=== PATIENT | female | born 1985 ===

== ENCOUNTER → 2020-02-22 13:19 | Outpatient (BNVA) | payer MEDICAID, SELFPAY | PROVIDERS: PCP Internal Medicine; Referring Provider Internal Medicine; Visit Provider Advanced Practice Midwife | DX: N92.1 Excessive and frequent menstruation with irregular cycle (principal) | CPT/HCPCS: 99204 ==

== ENCOUNTER 2020-02-27 14:29 | Outpatient (REF) | payer MEDICAID, SELFPAY ==
--- NOTE | 2020-02-27 14:55 | US_ITS ---
EXAMINATION: US PELVIS, COMPLETE CLINICAL INFORMATION: Excessive and frequent menses; the last menstrual period is not specified. COMPARISON: Pelvic ultrasound dated 09/05/2018. TECHNIQUE: Transabdominal and transvaginal imaging was performed. FINDINGS: The uterus is of normal size and echogenicity measuring 9.3 x 4.5 x 5.0 cm. The uterus is anteverted and anteflexed. A regular homogeneous endometrium is identified measuring 1.2 cm. Nabothian cysts are seen within the cervix. Both ovaries are of normal size and echogenicity. The right ovary measures 2.8 x 2.1 x 1.9 cm for a volume of 5.9 mL. The left ovary measures 4.0 x 3.7 x 2.3 cm for a volume of 17.8 mL. Multiple left ovarian cysts are seen, including a 2.0 x 1.4 x 2.0 cm mildly complex cyst with fine septation. This shows no mural nodularity associated color Doppler flow. There is a small amount of pelvic free fluid. No adnexal mass is seen. US/US pelvic complete IMPRESSION: 1. Multiple left ovarian cysts are seen, including a mildly complex 2.0 cm in maximal diameter anechoic cyst with fine septation. As a precaution, a repeat pelvic ultrasound examination is recommended in 6 weeks to ensure stability. 2. A small amount of nonspecific free fluid is seen within the cul-de-sac.
--- NOTE | 2020-02-27 14:55 | US_ITS ---
EXAMINATION: US PELVIS, COMPLETE CLINICAL INFORMATION: Excessive and frequent menses; the last menstrual period is not specified. COMPARISON: Pelvic ultrasound dated 09/05/2018. TECHNIQUE: Transabdominal and transvaginal imaging was performed. FINDINGS: The uterus is of normal size and echogenicity measuring 9.3 x 4.5 x 5.0 cm. The uterus is anteverted and anteflexed. A regular homogeneous endometrium is identified measuring 1.2 cm. Nabothian cysts are seen within the cervix. Both ovaries are of normal size and echogenicity. The right ovary measures 2.8 x 2.1 x 1.9 cm for a volume of 5.9 mL. The left ovary measures 4.0 x 3.7 x 2.3 cm for a volume of 17.8 mL. Multiple left ovarian cysts are seen, including a 2.0 x 1.4 x 2.0 cm mildly complex cyst with fine septation. This shows no mural nodularity associated color Doppler flow. There is a small amount of pelvic free fluid. No adnexal mass is seen. US/US transvaginal IMPRESSION: 1. Multiple left ovarian cysts are seen, including a mildly complex 2.0 cm in maximal diameter anechoic cyst with fine septation. As a precaution, a repeat pelvic ultrasound examination is recommended in 6 weeks to ensure stability. 2. A small amount of nonspecific free fluid is seen within the cul-de-sac.
[2020-02-27 15:03] LABS: Hematocrit 30.6 % (37-47); Mean Corpuscular HGB Conc 29.4 g/dl (31.0-35.0); Mean Corpuscular Hemoglobin 20.5 pg (27.0-33.0); Mean Corpuscular Volume 69.7 fL (80-98); Red Blood Count 4.39 X10*6/uL (4.20-5.50); Red Cell Distribution Width 17.7 % (11.0-16.0); White Blood Count 7.1 X10*3/uL (4.8-10.8)
[2020-02-27 15:09] LABS: PLT ABN DIST 1
[2020-02-27 15:27] LABS: Platelet Count 226 X10*3/uL (160-400)
== END 2020-02-27 14:30 | disposition home or self-care (01) ==
LOC: HO.US 14:29
PROVIDERS: Visit Provider Advanced Practice Midwife
DX: N92.1 Excessive and frequent menstruation with irregular cycle (principal)
CPT/HCPCS: 36415; 76830; 76856; 84443; 85027

== ENCOUNTER 2020-05-01 09:49 | Outpatient (REF) | payer MEDICAID, SELFPAY | END 2020-05-01 09:50 | disposition home or self-care (01) | LOC: HO.LAB 09:49 | PROVIDERS: Visit Provider Internal Medicine | DX: Z20.828 Contact with and (suspected) exposure to other viral communicable diseases (principal) | CPT/HCPCS: C9803; U0003 ==

== ENCOUNTER 2020-05-15 10:36 | Outpatient (REF) | payer MEDICAID, SELFPAY ==
--- NOTE | 2020-05-15 10:40 | US_ITS ---
EXAMINATION: ULTRASOUND PELVIS COMPLETE. CLINICAL INFORMATION: Unspecified ovarian cyst. COMPARISON: None TECHNIQUE: Transabdominal and transvaginal ultrasound of the pelvis is performed. FINDINGS: The uterus is anteverted and anteflexed measuring 8.4 cm in length, 4.4 cm in AP and 5.9 cm in transverse dimension. No focal lesion is seen. The endometrial thickness is 1.2 cm with 2 small echogenic foci. There are multiple nabothian cysts seen in the cervix. The right ovary measures 4.0 x 2.3 x 2.1 cm and volume 9.9 mL. There is a corpus luteal cyst measuring 1.6 x 1.5 x 1.7 cm. Previously right ovary measured 2.8 x 2.1 x 1.9 cm. The left ovary measures 2.8 x 2.3 x 2.2 cm and volume 7.4 mL. Previously left ovary measured 2.8 x 2.1 x 1.9 cm. Free fluid in the cul-de-sac. US/US transvaginal IMPRESSION: Unremarkable uterus. Small nabothian cysts seen in the cervix. 2 echogenic foci are seen in the endometrial cavity.
--- NOTE | 2020-05-15 10:40 | US_ITS ---
EXAMINATION: ULTRASOUND PELVIS COMPLETE. CLINICAL INFORMATION: Unspecified ovarian cyst. COMPARISON: None TECHNIQUE: Transabdominal and transvaginal ultrasound of the pelvis is performed. FINDINGS: The uterus is anteverted and anteflexed measuring 8.4 cm in length, 4.4 cm in AP and 5.9 cm in transverse dimension. No focal lesion is seen. The endometrial thickness is 1.2 cm with 2 small echogenic foci. There are multiple nabothian cysts seen in the cervix. The right ovary measures 4.0 x 2.3 x 2.1 cm and volume 9.9 mL. There is a corpus luteal cyst measuring 1.6 x 1.5 x 1.7 cm. Previously right ovary measured 2.8 x 2.1 x 1.9 cm. The left ovary measures 2.8 x 2.3 x 2.2 cm and volume 7.4 mL. Previously left ovary measured 2.8 x 2.1 x 1.9 cm. Free fluid in the cul-de-sac. US/US pelvic complete IMPRESSION: Unremarkable uterus. Small nabothian cysts seen in the cervix. 2 echogenic foci are seen in the endometrial cavity.
== END 2020-05-15 10:37 | disposition home or self-care (01) ==
LOC: HO.US 10:36
PROVIDERS: Visit Provider Advanced Practice Midwife
DX: N83.209 Unspecified ovarian cyst, unspecified side (principal); N92.1 Excessive and frequent menstruation with irregular cycle
CPT/HCPCS: 76830; 76856

== ENCOUNTER 2020-05-23 13:08 | Outpatient (REF) | payer MEDICAID, SELFPAY ==
[2020-05-24 18:13] LABS: C. trachomatis RNA TMA NOT DETECTED (NOT DETECTED); N. gonorrhoeae RNA TMA NOT DETECTED (NOT DETECTED)
== END 2020-05-23 13:09 | disposition home or self-care (01) ==
LOC: HO.LAB 13:08
PROVIDERS: PCP Internal Medicine; Visit Provider Advanced Practice Midwife
DX: Z30.430 Encounter for insertion of intrauterine contraceptive device (principal); Z32.02 Encounter for pregnancy test, result negative; Z79.899 Other long term (current) drug therapy
CPT/HCPCS: 36415; 58300; 81025; 87491; 87591

== ENCOUNTER → 2020-05-29 14:40 | Outpatient (BNVA) | payer MEDICAID, SELFPAY | PROVIDERS: PCP Internal Medicine; Visit Provider Advanced Practice Midwife | DX: Z76.89 Persons encountering health services in other specified circumstances (principal) ==

== ENCOUNTER → 2020-06-27 13:40 | Outpatient (BNVA) | payer MEDICAID, SELFPAY | PROVIDERS: PCP Internal Medicine; Visit Provider Advanced Practice Midwife | DX: Z30.431 Encounter for routine checking of intrauterine contraceptive device (principal) | CPT/HCPCS: 99212 ==

== ENCOUNTER 2020-11-11 11:30 | Outpatient (REF) | payer MEDICAID, SELFPAY ==
[2020-11-12 06:07] LABS: CT PCR NOT DETECTED (Not Detect.); NG PCR NOT DETECTED (Not Detect.)
[2020-11-12 08:38] LABS: BV Int Neg Control Negative (Negative); BV Int Pos Control Positive (Positive)
== END 2020-11-11 11:31 | disposition home or self-care (01) ==
LOC: HO.LAB 11:30
PROVIDERS: PCP Internal Medicine; Visit Provider Advanced Practice Midwife
DX: R10.2 Pelvic and perineal pain (principal); N93.9 Abnormal uterine and vaginal bleeding, unspecified; N89.8 Other specified noninflammatory disorders of vagina; N39.0 Urinary tract infection, site not specified; I10 Essential (primary) hypertension; Z30.431 Encounter for routine checking of intrauterine contraceptive device
CPT/HCPCS: 81003; 81025; 87086; 87480; 87491; 87510; 87591; 87660; 99212

== ENCOUNTER 2021-01-22 14:27 | Outpatient (REF) | payer MEDICAID, SELFPAY ==
--- NOTE | ~2021-01-22 | US_ITS ---
EXAMINATION:US pelvic and transvaginal CLINICAL INFORMATION: Reason for Exam N93.9 - Abnormal uterine and vaginal bleeding, unspecified COMPARISON: Prior ultrasound May 15, 2020 LMP: Unknown FINDINGS: UTERUS: The uterus is anteverted. Size: 9.1 x 3.9 x 5.4 cm. Uterine mass: There is no uterine mass. Echogenic foci probably calcifications at the fundus, this is probably of no clinical significance. Subendometrial echogenic structure probably a small fibroid 1.1 x 1 x 0.8 cm. Cervix: Grossly unremarkable. Endometrium: No ultrasound evidence of endometrial lesion. endometrial thickness measures 0.7 cm ADNEXA: Normal Right ovary: Normal in size. Left ovary: Normal in size. Cystic structure probably a dominant follicle left ovary 2.2 cm. Doppler exam: Normal Doppler flow identified in both ovaries. FREE FLUID: Trace amount of free fluid. OTHER FINDINGS: None US/US pelvic and transvaginal IMPRESSION: There is probably small subserosal fibroid 1.1 cm. There is a simple 2.2 cm cyst in the left ovary this is likely physiologic dominant follicle. No follow-up required.
== END 2021-01-22 14:28 | disposition home or self-care (01) ==
LOC: HO.US 14:27
PROVIDERS: PCP Internal Medicine; Visit Provider Advanced Practice Midwife
DX: N93.9 Abnormal uterine and vaginal bleeding, unspecified (principal)
CPT/HCPCS: 76830; 76856

== ENCOUNTER → 2021-02-05 11:10 | Outpatient (BNVA) | payer MEDICAID, SELFPAY | PROVIDERS: Visit Provider Advanced Practice Midwife ==

== ENCOUNTER 2021-02-06 21:50 | Emergency (ER) | payer MEDICAID, SELFPAY ==
[2021-02-06 22:35] VITALS: BP 206/100; PULSE 84; RESP 16; TEMP 37.2; O2SAT 96; BMI 25.0
--- NOTE | 2021-02-06 23:35 | ED_ITS ---
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 States that she has muscle spasms in the pain radiates down her leg. She does not describe any other symptoms. MD elicited complaint: back pain Onset (ago): day(s) (2) Timing: constant Severity: moderate Similar Symptoms Previously: No Quality: spasming and throbbing Location: left lower back Radiation: left upper leg Exacerbating factors: movement, walking, coughing/sneezing and lifting Relieving factors: immobilization Context: while lifting, turning/twisting and bending Associated symptoms: denies other symptoms Treatments prior to arrival: cold therapy, NSAIDS and acetaminophen Work related injury: Yes Related Data Home Medications Medication Instructions Recorded Confirmed amlodipine 5 mg tablet 5 mg PO DAILY 02/22/20 artifi.tears(hypromellose)(PF) 0.3 1 drp OPHTHALMIC (EYE) Q4-6H PRN 02/22/20 % eye drops ascorbate calcium (vitamin C) 500 500 mg PO DAILY 02/22/20 mg tablet docusate sodium 100 mg capsule 100 mg PO DAILY 02/22/20 (Colace) ferrous sulfate 325 mg (65 mg 325 mg PO DAILY 02/22/20 iron) tablet losartan 100 1 tab PO DAILY 02/22/20 mg-hydrochlorothiazide 25 mg tablet (Hyzaar) Previous Rx's Medication Instructions Recorded ibuprofen 600 mg tablet 600 mg PO TID #30 tab 05/23/20 nitrofurantoin 100 mg PO BID 3 Days #6 cap 11/11/20 monohydrate/macrocrystals 100 mg capsule (Macrobid) metronidazole 500 mg tablet 500 mg PO BID 7 Days #14 tab 11/12/20 (Flagyl) cyclobenzaprine 10 mg tablet 10 mg PO TID PRN #14 tab 02/06/21 Allergies Allergy/AdvReac Type Severity Reaction Status Date / Time No Known Allergies Allergy Verified 02/06/21 22:35 Review of Systems Review of Systems: Constitutional: No Fever, No Chills ENT/Mouth: No Ear Pain, No Hoarseness, No sore throat Eyes: No Eye Pain, No Swelling, No Redness, No Foreign Body Cardiovascular: No Chest Pain, No SOB Respiratory: No Cough, No Dyspnea Gastrointestinal: No Nausea, No Vomiting, No Diarrhea, No abdominal Pain Genitourinary: No Dysuria, No Hematuria Musculoskeletal: positive lumbar back pain, No Myalgias, No Joint Swelling Skin: No Skin lacerations, No rash Neuro: No Weakness, No Numbness, No Paresthesias, No Loss of Consciousness, No Dizziness, No Headache Psych: No Anxiety/Panic, No Depression Heme/Lymph: no easy bruising, no Lymphadenopathy Endocrine: No Polyuria, No Polydipsia Yes all other systems are reviewed and are negative [facility] Past Medical History Attestation statement: The following information was validated with the patient. Source: old records reviewed Medical History Anemia Hypertension Obesity (BMI 30.0-34.9) Surgical History Hx of section Hx of tubal ligation Family History Family History Mother History of breast cancer Hypertension Diabetes mellitus Social History Social History Alcohol intake: never Advance Directives: No Advance Directives Information Provided: No Physical Exam Vital Signs: Vital Signs: Last Vital Signs Temp 98.9 F 02/06/21 22:35 Pulse 84 02/06/21 22:35 Resp 16 02/06/21 22:35 BP 206/100 H 02/06/21 22:35 Pulse Ox 96 02/06/21 22:35 Body Mass Index 25.0 Appearance: Alert. Oriented X3. No acute distress. Eyes: Pupils equal, round and reactive to light. ENT: Pharynx normal. Neck: Normal inspection. Neck supple. Vertebral spine nontender no palpable step-offs. CVS: Normal heart rate and rhythm. Pulses normal. Respiratory: No respiratory distress. Breath sounds normal. Abdomen: Soft and nontender. Skin: Skin warm and dry. Normal skin color. Normal skin turgor. Extremities: No lower extremity edema. Moves all extremities against resistance. Neuro: No motor deficit. No sensory deficit. Cranial nerves 2-12 intact. Course Course Course Narrative: 35-year-old female presents with left lower back pain and spasms. 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 She does have some sciatica going down the left upper leg. Palpable spasms to the back noted. No indication of cauda equina. Patient has been using [id number] medications with poor effect. Will order Valium at this time as patient is not driving. Will send a script for cyclobenzaprine to her pharmacy. Patient will follow up with [facility] as needed. Patient verbalized understanding of and agrees to plan of care discharge home. fumigator and sterilizer utilized for all correspondence. Google translate utilized for discharge instructions. MDM - Back Pain/Injury Differential Diagnosis Differential diagnosis: Likely sciatica and strain of lumbar region Medical Records Attestation: I reviewed the patient's medical records. Discharge Plan Discharge Clinical Impression: Strain of lumbar region Qualifiers: Encounter type: initial encounter Qualified Code(s): S39.012A - Strain of muscle, fascia and tendon of lower back, initial encounter Sciatica Qualifiers: Laterality: left Qualified Code(s): M54.32 - Sciatica, left side Patient Disposition: Home, Self-Care Instructions: Sciatica (ED), Low Back Strain (ED), Acute Low Back Pain (ED), R.I.C.E. Treatment (ED) Additional Instructions: Fue evaluado por aron lesi?n en la espalda baja sufrida mientras trabajaba. Prescribimos ciclobenzaprina, que es un relajante muscular. Deacon medicamento puede retrasar el tiempo de reacci?n, aumentar el riesgo de ca?ferrera y causar somnolencia. No conduzca ni maneje maquinaria mientras est? tomando deacon medicamento. Jaime un seguimiento con la conexi?n de trabajo. Es posible que necesite fisioterapia para esta lesi?n. Makenzie por elegir deacon departamento de emergencias para ahuja evaluaci?n. Jaime un seguimiento con ahuja m?dico de atenci?n primaria seg?n sea necesario. Regrese al departamento de emergencias por cualquier s?ntoma nuevo, preocupante o que empeore. You were evaluated for lower back injury sustained while working. We prescribe cyclobenzaprine which is a muscle relaxer. This medication can delay reaction time, increased risk for falls, and cause drowsiness. Do not drive or operate machinery while taking this medication. Please follow-up with [facility]. You may need physical therapy for this injury. Thank you for choosing this emergency department for evaluation. Please follow-up with primary care physician as needed. Return to the emergency department for any new, concerning, or worsening symptoms. Prescriptions: New cyclobenzaprine 10 mg tablet 10 mg PO TID PRN (Reason: muscle spasm) Qty: 14 RF: 0 No Action metronidazole [Flagyl] 500 mg tablet 500 mg PO BID 7 Days Qty: 14 RF: 0 amlodipine 5 mg tablet 5 mg PO DAILY RF: 0 losartan-hydrochlorothiazide [Hyzaar] 100-25 mg tablet 1 tab PO DAILY RF: 0 artifi.tears(hypromellose)(PF) 0.3 % drops 1 drp ophthalmic (eye) Q4-6H PRNRF: 0 ferrous sulfate 325 mg (65 mg iron) tablet 325 mg PO DAILY RF: 0 docusate sodium [Colace] 100 mg capsule 100 mg PO DAILY RF: 0 ascorbate calcium (vitamin C) 500 mg tablet 500 mg PO DAILY RF: 0 ibuprofen 600 mg tablet 600 mg PO TID Qty: 30 RF: 1 nitrofurantoin monohyd/m-cryst [Macrobid] 100 mg capsule 100 mg PO BID 3 Days Qty: 6 RF: 0 Referrals: [facility] [Provider Group] - 2 days (Lumbar strain) Stand Alone Forms: Work/School Release
[2021-02-07] MEDS: diazePAM 5 MG TABLET PO (00:04)
== END 2021-02-07 00:42 | disposition home or self-care (01) ==
PROVIDERS: Emergency Provider Emergency Medicine
DX: S39.012A Strain of muscle, fascia and tendon of lower back, initial encounter (principal); M54.32 Sciatica, left side; I10 Essential (primary) hypertension; X50.9XXA Other and unspecified overexertion or strenuous movements or postures, initial encounter; Y93.89 Activity, other specified; Y92.9 Unspecified place or not applicable; Y99.0 Civilian activity done for income or pay
CPT/HCPCS: 99283; 99284

== ENCOUNTER 2022-12-30 09:15 | Outpatient (REF) | payer MEDICAID, SELFPAY ==
[2023-01-01 23:09] LABS: TS Negative Control Passed; TS Panel A 2; TS Panel B 1; TS Positive Control Passed; TSpotTB Negative (Negative)
== END 2022-12-30 09:16 | disposition home or self-care (01) ==
LOC: HO.HHCL 09:15
PROVIDERS: Visit Provider Internal Medicine
DX: Z11.1 Encounter for screening for respiratory tuberculosis (principal)
CPT/HCPCS: 36415; 86481

== ENCOUNTER 2023-03-19 08:43 | Outpatient (REF) | payer MEDICAID, SELFPAY ==
[2023-03-19 11:32] LABS: MANUAL DIFF FLAG NO
[2023-03-19 11:42] LABS: Basophils Percent Auto 0.4 % (0-2); Eosinophils Absolute Auto 0.1 X10*3/uL (0.0-0.4); Eosinophils Percent Auto 2.3 % (0-4); Hematocrit 33.3 % (37.0-47.0); Hemoglobin 9.9 g/dl (12.0-16.0); Imm Gran Abs Auto 0.01 X10*3/uL (0.00-0.03); Imm Gran Pct Auto 0.2 % (0.0-0.4); Lymphocytes Absolute Auto 1.3 X10*3/uL (1.2-4.9); Lymphocytes Percent Auto 22.8 % (20-40); Mean Corpuscular HGB Conc 29.7 g/dl (31.0-35.0); Mean Corpuscular Hemoglobin 21.9 pg (27.0-33.0); Mean Corpuscular Volume 73.5 fL (80.0-98.0); Monocytes Absolute Auto 0.5 X10*3/uL (0.1-1.2); Monocytes Percent Auto 8.2 % (2-11); Neutrophils Absolute Auto 3.7 x10*3/uL (2.0-8.3); Neutrophils Percent Auto 66.1 % (45-73); Platelet Count 218 X10*3/uL (160-400); Red Blood Count 4.53 X10*6/uL (4.20-5.50); Red Cell Distribution Width 18.4 % (11.0-16.0); White Blood Count 5.6 X10*3/uL (4.8-10.8)
[2023-03-19 12:17] LABS: Alanine Aminotransferase < 5 U/L (0-31); Albumin Level 3.8 g/dL (3.5-5.0); Alkaline Phosphatase 47 U/L (39-117); Anion Gap 11 (12-20); Aspartate Amino Transferase 14 U/L (5-31); Bilirubin Direct 0.1 mg/dL (0.0-0.5); Bilirubin Total 0.4 mg/dL (0.0-1.0); Blood Urea Nitrogen 11 mg/dL (9-16); Carbon Dioxide 28 mmol/L (22-29); Chloride 105 mmol/L (96-108); Cholesterol 146 mg/dL (<200); Estimated Glomerular Filt Rate > 60; Glucose Random 96 mg/dL (60-115); HDL Cholesterol 31 mg/dL (>40); HIV AB/AG Nonreactive (Nonreactive); HIV Num 1 0.05 S/CO (0.00-0.99); LDL Cholesterol Calculated 100 mg/dL (<100); Potassium 4.1 mmol/L (3.3-5.1); Sodium 140 mmol/L (135-145); TSH reflex Free T4 0.96 uIU/mL (0.32-4.0); Total Protein 7.6 g/dL (6.5-8.0); Triglycerides 77 mg/dL (<150); ~HepC Num1 0.15 S/CO (0.00-0.79); ~Hepatitis C Antibody Nonreactive (Nonreactive)
[2023-03-19 12:19] LABS: Estimated Average Glucose 117 mg/dL; Hemoglobin A1c % 5.7 % (<6.0)
[2023-03-19 12:20] LABS: Syphilis Screen Nonreactive (Nonreactive)
[2023-03-19 13:03] LABS: CT PCR NOT DETECTED (Not Detect.); NG PCR NOT DETECTED (Not Detect.)
== END 2023-03-19 08:44 | disposition home or self-care (01) ==
LOC: HO.HHCL 08:43
PROVIDERS: Visit Provider Internal Medicine
DX: Z00.00 Encounter for general adult medical examination without abnormal findings (principal)
CPT/HCPCS: 0353U; 80048; 80061; 80076; 83036; 84443; 85025; 86780; 86803; 87389

== ENCOUNTER 2023-09-13 13:27 | Outpatient (REF) | payer OTHER, SELFPAY ==
--- NOTE | ~2023-09-13 | MM_ITS ---
EXAMINATION: MM SCREENING DIGITAL BREAST TOMOSYNTHESIS, BILATERAL CLINICAL INFORMATION: Screening. Asymptomatic. COMPARISON: Mammography: This is a baseline study. TECHNIQUE: Digital breast tomosynthesis is performed in both the craniocaudal and mediolateral oblique views along with computer-aided detection (CAD). Synthesized 2D images are generated from the tomosynthesis. FINDINGS: There are scattered areas of fibroglandular density (ACR BI-RADS breast composition Category b). There are no significant masses, abnormal calcifications, or other abnormalities. MM/MM tomosynthesis screening BI IMPRESSION: No mammographic evidence of malignancy. ASSESSMENT: BI-RADS BI-RADS 1 - Negative RECOMMENDATION: Routine annual mammography screening. 1 year F/U This examination should not preclude the clinical evaluation of a suspicious palpable abnormality. This patient's information was entered into a reminder system with a target due date for their next mammogram.
== END 2023-09-13 13:28 | disposition home or self-care (01) ==
LOC: HO.MAMMO 13:27
PROVIDERS: PCP Internal Medicine; Visit Provider Internal Medicine
DX: Z12.31 Encounter for screening mammogram for malignant neoplasm of breast (principal)
CPT/HCPCS: 77063; 77067

== ENCOUNTER → 2023-09-13 14:00 | Outpatient (BNV) | payer OTHER, SELFPAY | PROVIDERS: PCP Internal Medicine; Visit Provider Radiology Diagnostic Radiology | DX: Z12.31 Encounter for screening mammogram for malignant neoplasm of breast (principal) | CPT/HCPCS: 77063; 77067 ==

== ENCOUNTER 2024-03-07 10:43 | Outpatient (AMB) | payer OTHER, SELFPAY ==
--- NOTE | 2024-03-07 10:46 | MHC.OFFVIS ---
Vital Signs 03/07/24 10:53 Height 5 ft 3 in Weight 201 lb BMI 35.6 BP 126/78 Intake Visit Reasons: metrorrhagia/Referral Scroll Saw Operator Required: Yes Scroll Saw Operator Language: Manager Diabetes Name: Johnna [id number] Employee Communications Manager: Employee Communications Manager Present (sharonda) Allergies No Known Allergies Allergy (Verified 02/06/21 22:35) Is last menstrual period known: Yes Last menstrual period: 02/16/24 HPI Comments Details: Patient is here today accompanied by her mom Hien, due to history of irregular bleeding, heavy at times. Normal menses x 5 days, heavy 3-4/5d. She reports last cycle lasted 7-8 days and at times bleeding less than 24 days apart. Currently on iron therapy. Last H&H documented 03/2023 9.9/33.3, TSH 0.91. She reports pap is up-to-date by her primary care-No records available today. 2020 Mirena IUD for AUB, remove do a partial expulsion. History of uterine fibroid. [facility] Medical History (Updated 03/07/24 @ 11:23 by Marie Friedman CNM) Abnormal uterine bleeding (AUB) Hypertension Anemia Obesity (BMI 30.0-34.9) Surgical History Hx of tubal ligation Hx of section Family History Mother History of breast cancer Hypertension Diabetes mellitus Social History Alcohol intake: never Female Reproductive History Menstrual Age of Menarche: 8 Duration of menses: 8-10 days Date of last menstrual period: 02/16/24 Total pregnancies: 2 Full term: 2 Date of Mammogram: 09/13/23 (bi-rad 1) Review of Systems Const All systems reviewed & are unremarkable except as noted in HPI and below Physical Exam Vital Signs: Last Vital Signs BP 126/78 03/07/24 10:53 BMI result Body Mass Index 35.6 Const General: cooperative, healthy appearing and no acute distress Orientation/consciousness: patient oriented x3 GI Inspection: Yes normal to inspection Palpation (GI): Soft to palpation and Other GI palpation findings present (Nontender) Rectal Exam - Female: visual inspection normal General: Yes bladder normal to palpation External Female Exam: normal appearance of the urethra Speculum Exam - Vagina: normal appearance of the vagina, normal palpation and normal vaginal discharge Speculum Exam - Cervix: normal appearance of the cervix, normal palpation and Other cervical findings present (Bled slightly at Pap with Q-tip) Bimanual exam- vagina & uterus: normal bimanual exam, normal palpation, uterine size normal, bladder normal to palpation, normal palpation, uterine shape normal and non-tender Bimanual Exam- Adnexa, other: normal adnexae Neuro General: patient oriented x3 Results AMB Test Urine AMB Test Urine Negative Last Edit by LUKE Vasquez on 03/07/24 11:04 Results Reviewed Results Reviewed: Laboratory Last Values [facility]st Clinic Negative 03/07/24 11:02 Assessment & Plan Assessment & Plan (1) Abnormal uterine bleeding (AUB): Code(s): N93.9 - Abnormal uterine and vaginal bleeding, unspecified Category: Medical Plan Discussed: Workup to include pelvic ultrasound, GC chlamydia, TSH and CBC, send for Pap records, if not current will plan a Pap at her next follow up. Advised to have an endometrial biopsy to further evaluate for any abnormal cells within the wall of the uterus including uterine cancer. Pre procedure anticipatory guidance reviewed-advised to have something to eat and drink and take either 2 Tylenol or 3 ibuprofen with food 1 hour before her appointment. Consider a future Mirena IUD for cycle control recommended choice. All of her questions and concerns were addressed to the best of my ability and shared decision making. She is agreeable to the plan of care. This note is constructed using voice recognition software. While every effort has been made to ensure accuracy, workers compensation claims specialist errors may have been included. Orders: Orders Bacterial Vaginosis Panel Today N92.1 - Excessive and frequent menstruation with irregular cycle, N92.6 - Irregular menstruation, unspecified US pelvic and transvaginal Today N93.9 - Abnormal uterine and vaginal bleeding, unspecified Thyroid Stimulating Hormone Today N92.1 - Excessive and frequent menstruation with irregular cycle, N93.9 - Abnormal uterine and vaginal bleeding, unspecified Complete Blood Count no Diff Today N93.9 - Abnormal uterine and vaginal bleeding, unspecified AMB HCG Urine Test Today N92.1 - Excessive and frequent menstruation with irregular cycle CT NG by PCR Today N92.1 - Excessive and frequent menstruation with irregular cycle, N92.6 - Irregular menstruation, unspecified Coding Level of Care Code New Pt Level 4 (73993) Diagnoses Abnormal uterine bleeding (AUB) N93.9
[2024-03-07 10:53] VITALS: BP 126/78; BMI 35.6
== END 2024-03-07 11:25 | disposition home or self-care (01) ==
LOC: HO.HWS 10:44
PROVIDERS: PCP Internal Medicine; Visit Provider Advanced Practice Midwife
DX: N92.1 Excessive and frequent menstruation with irregular cycle (principal); N93.9 Abnormal uterine and vaginal bleeding, unspecified
CPT/HCPCS: 99204

== ENCOUNTER 2024-03-07 10:43 | Outpatient (REF) | payer OTHER, SELFPAY ==
[2024-03-07 17:58] LABS: Bacterial Vaginosis PCR NEGATIVE (Negative); Candida Group PCR NOT DETECTED (Not Detect); Candida glab krusei PCR NOT DETECTED (Not Detect); Trichomonas vaginalis PCR NOT DETECTED (Not Detect)
[2024-03-07 18:30] LABS: CT PCR NOT DETECTED (Not Detect.); NG PCR NOT DETECTED (Not Detect.)
== END 2024-03-07 10:44 | disposition home or self-care (01) ==
LOC: HO.LAB 10:43
PROVIDERS: PCP Internal Medicine; Visit Provider Advanced Practice Midwife
DX: N92.1 Excessive and frequent menstruation with irregular cycle (principal); N92.6 Irregular menstruation, unspecified; N93.9 Abnormal uterine and vaginal bleeding, unspecified
CPT/HCPCS: 0352U; 81025; 87491; 87591; 99202

== ENCOUNTER 2024-03-07 11:17 | Outpatient (REF) | payer OTHER, SELFPAY | END 2024-03-07 11:18 | disposition home or self-care (01) | LOC: HO.LNP 11:17 | PROVIDERS: Visit Provider Advanced Practice Midwife | DX: Z13.89 Encounter for screening for other disorder (principal) ==

== ENCOUNTER 2024-03-13 10:58 | Outpatient (REF) | payer OTHER, SELFPAY ==
[2024-03-13 12:59] LABS: MANUAL DIFF FLAG NO
[2024-03-13 13:30] LABS: Basophils Percent Auto 0.4 % (0-2); Eosinophils Absolute Auto 0.1 X10*3/uL (0.0-0.4); Hematocrit 35.3 % (37.0-47.0); Imm Gran Abs Auto 0.02 X10*3/uL (0.00-0.03); Imm Gran Pct Auto 0.3 % (0.0-0.4); Lymphocytes Absolute Auto 1.7 X10*3/uL (1.2-4.9); Mean Corpuscular HGB Conc 31.2 g/dl (31.0-35.0); Mean Corpuscular Hemoglobin 23.7 pg (27.0-33.0); Mean Corpuscular Volume 76.1 fL (80.0-98.0); Mean Platelet Volume 13.5 fL (9.4-12.3); Monocytes Absolute Auto 0.7 X10*3/uL (0.1-1.2); Monocytes Percent Auto 9.6 % (2-11); Neutrophils Absolute Auto 4.6 x10*3/uL (2.0-8.3); Neutrophils Percent Auto 63.7 % (45-73); Platelet Count 245 X10*3/uL (160-400); Red Blood Count 4.64 X10*6/uL (4.20-5.50); Red Cell Distribution Width 15.9 % (11.0-16.0); White Blood Count 7.2 X10*3/uL (4.8-10.8)
[2024-03-13 14:01] LABS: Thyroid Stimulating Hormone 0.99 uIU/mL (0.32-4.0)
[2024-03-16 05:09] LABS: TS Negative Control Passed; TS Panel A 0; TS Panel B 0; TS Positive Control Passed; TSpotTB Negative (Negative)
== END 2024-03-13 10:59 | disposition home or self-care (01) ==
LOC: HO.HHCL 10:58
PROVIDERS: Advanced Practice Midwife; Visit Provider Internal Medicine
DX: Z11.1 Encounter for screening for respiratory tuberculosis (principal); D50.9 Iron deficiency anemia, unspecified; N93.9 Abnormal uterine and vaginal bleeding, unspecified; N92.1 Excessive and frequent menstruation with irregular cycle
CPT/HCPCS: 36415; 84443; 85025; 85027; 86481

== ENCOUNTER 2024-03-20 16:15 | Outpatient (REF) | payer OTHER, SELFPAY ==
[2024-03-21 10:07] LABS: HPV 16,18/45 See PAP report
== END 2024-03-20 16:16 | disposition home or self-care (01) ==
LOC: HO.LNP 16:15
PROVIDERS: Internal Medicine
DX: Z00.00 Encounter for general adult medical examination without abnormal findings (principal)
CPT/HCPCS: 87624; 88175

== ENCOUNTER → 2024-06-06 11:17 | Outpatient (BNV) | payer OTHER, SELFPAY | PROVIDERS: PCP Internal Medicine; Visit Provider Radiology Diagnostic Radiology | DX: D25.9 Leiomyoma of uterus, unspecified (principal) | CPT/HCPCS: 76830; 76856 ==

== ENCOUNTER 2024-07-13 13:27 | Outpatient (AMB) | payer OTHER, SELFPAY ==
--- NOTE | 2024-07-13 13:32 | A.OFFVIS_ITS ---
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 History of heavy menstrual bleeding. Mirena IUD removed in 2020 as it was partially expelled. Today she is reporting left-sided intermittent discomfort. LMP is late 7 days, UPT is negative. History of tubal ligation. [facility] Medical History (Updated 07/13/24 @ 14:17 by Marie Friedman CNM) Fibroid Complex ovarian cyst Abnormal uterine bleeding (AUB) Hypertension Anemia Obesity (BMI 30.0-34.9) Surgical History Hx of tubal ligation Hx of section Family History Mother History of breast cancer Hypertension Diabetes mellitus Social History Alcohol intake: never Female Reproductive History Menstrual Age of Menarche: 8 Date of last menstrual period: 06/08/24 Review of Systems Const All systems reviewed & are unremarkable except as noted in HPI and below Endo Reports no additional complaints Physical Exam Vital Signs: Last Vital Signs BP 112/70 07/13/24 13:34 Const General: cooperative, healthy appearing and no acute distress Psych Appearance: well kempt Attitude: cooperative Thought process: Normal thought process present Results AMB Test Urine AMB Test Urine Negative Last Edit by LUKE Vasquez on 07/13/24 13:46 Results Reviewed Results Reviewed: [address] [address] Ultrasound Report Signed Patient: Tessa Parnell MR#: [id number] : 1985 Acct:[id number] Age/Sex: 39 / F ADM Date: 06/06/24 Loc: HO. Attending Dr: Marie Friedman CNM Ordering Physician: Marie Friedamn CNM Date of Service: 06/06/24 Procedure(s): US pelvic and transvaginal Accession Number(s): [id number] cc: Alem Rubalcava MD; Marie Friedman CNM~ EXAMINATION: US PELVIS CLINICAL INFORMATION: Vaginal bleed. COMPARISON: January 22, 2021. TECHNIQUE: Ultrasound of the pelvis is performed using both transabdominal and transvaginal transducers along with Doppler. Transvaginal imaging is performed due to inadequate visualization transabdominally. FINDINGS: Uterus: The uterus is anteverted and measures 9 x 5 x 6 cm. Volume: 136 cc. The double wall endometrial thickness is 15 mm. There is a 1 cm mixed hypo to isoechoic nodule in the myometrium just beneath the endometrium. No gross flow on color Doppler interrogation within this nodular lesion. The endocervical canal and cervix are normal. Adnexa: Both ovaries are visualized. There is normal color flow to the adnexa. There is no ovarian torsion. There is no pelvic ascites or fluid collection. Right ovary measures 3 x 3 x 1 cm. Volume: 4 cc. Left ovary measures 4 x 2 x 2 cm. Volume: 8 cc. There is a 1.8 cm heterogeneous hyperechoic lesion without flow on color Doppler interrogation. US/US pelvic and transvaginal IMPRESSION: 1 cm uterine fibroid probable submucosal. No ovarian torsion. 1.8 cm complex cystic lesion left ovary. Electronically signed by: Ernesto Ivey MD 06/06/2024 12:[address] 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 Some develop into premalignant or malignant tumors. Limitations of testing for diagnostic purposes. Further monitoring and evaluation is recommended with US, possible CT, or MRI study. If persists, or is indicated (Ca-125, Carbohydrate Antigen 19-9, & Carcinoembryonic Antigen) labs will be ordered and referral to [facility] or general gynecology for MD care if indicated for possible surgical consult. Follow up in person for test results. Ultrasound ordered. All of her questions and concerns were addressed to the best of my ability and shared decision making. She is agreeable to the plan of care. This note is constructed using voice recognition software. While every effort has been made to ensure accuracy, hospice home care coordinator errors may have been included. (3) Abnormal uterine bleeding (AUB): Code(s): N93.9 - Abnormal uterine and vaginal bleeding, unspecified Category: Medical Plan: Workup/reason for AUB-to include endometrial biopsy. Pre procedure planning reviewed, advised to take 3 Advil with food and fluids 1 hour before her procedure appointment time, per manufacture's recommendation. The patient expressed understanding and agreement with the plan of care. All of her que stions and concerns were addressed to the best of my ability. 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 This note is constructed using voice recognition software. While every effort has been made to ensure accuracy, hospice home care coordinator errors may have been included. Orders: Orders AMB HCG Urine Test Today N93.9 - Abnormal uterine and vaginal bleeding, unspecified US pelvic and transvaginal 08/14/24 N83.299 - Other ovarian cyst, unspecified side Coding Level of Care Code Est Pt Level 3 (30178) Diagnoses Encounter to discuss test results Z71.2 Complex ovarian cyst N83.299 Abnormal uterine bleeding (AUB) N93.9 Fibroid D21.9
[2024-07-13 13:34] VITALS: BP 112/70
--- OUTSIDE RECORDS SUMMARY | 2024-07-13 17:02 | XMS_ITS | Clinical Summary ---
Author Organization [employer] Address [address] [facility] 7[address] [place] [address] Care Team Providers Care Sane Nurse Name Role Phone Alem Rubalcava MD Primary Care Provide r Allergies No known active allergies Medications ferrous gluconate (Fergon) 324 (38 Fe) MG tabletIndications :Iron deficiency anemia, unspecified iron deficiency anemia type Take 1 tablet (324 mg) by mouth every other day. 15 tablet 3 03/08/2024 03/08/20 25 Active amLODIPine (Norvasc) 5 MG tabletIndications :Essential hypertension Take 1 tablet (5 mg) by mouth Once per day. 90 tablet 1 03/20/2024 Active chlorthalidone (Hygroton) 25 MG tabletIndications :Essential hypertension Take 1 tablet (25 mg) by mouth Once per day. 90 tablet 1 03/20/2024 03/20/20 25 Active losartan (Cozaar) 100 MG tabletIndications :Essential hypertension Take 1 tablet (100 mg) by mouth Once per day. 90 tablet 1 03/20/2024 03/20/20 25 Active Active Problems Problem Noted Date Diagnosed Date Encounter for preventive care 03/20/2024 Encounter for screening for cervical cancer 03/03 Assessment & Plan (03/20/2024 4:28 PM EST): Patient will be contacted with results Tuberculosis screening 03/13/2024 Encounter for preventative adult health care exa mination 03/13/2024 Assessment & Plan (03/13/2024 12:08 PM EST): See HPI Prediabetes 03/13/2024 Assessment & Plan (03/13/2024 12:08 PM EST): Today extensive discussion was done about life style modifications I advise healthy diet (low calorie) and cardiovascular exercise Metrorrhagia 11/16/2023 Other constipation 06/04/2023 Assessment & Plan (06/04/2023 4:32 PM EST): Increase water and fiber on diet Colace prescribed today Breast cancer screening by mammogram 06/04/2023 Preventative health care 02/26/2023 Assessment & Plan (02/26/2023 1:49 PM EDT): See HPI Obesity 09/01/2022 Iron deficiency anemia 09/01/2022 Assessment & Plan (11/16/2023 3:05 PM EDT): Hgb at office today 9.4 I will start her on iron supplements, I will put [facility] referral Essential hypertension 09/01/2022 Assessment & Plan (03/20/2024 4:27 PM EST): Stable c/w same medication regiment refills done to day Assessment & Plan (03/13/2024 12:08 PM EST): I advise: - Aerobic exercise to reduce BP. Initial goal of 30 min walk 3-5x/week. Increase as tolerated. - low-sodium diet (goal: <2g/day) and heart healthy diet such as DASH to reduce BP and prevent ASCVD. - Home BP monitoring 1-2 x day with goal of <140/90. - Seek immediate medical attention for chest pain, palpitations, SOB, syncope, or sudden changes in mental status. - Do not change or discontinue current prescriptions without first consulting health care provider Assessment & Plan (11/16/2023 3:04 PM EDT): Controlled c/w same medication regimen and low Na diet Assessment & Plan (06/04/2023 4:32 PM EST): Maintenance: BMP: up to date Lipid Panel: up to date ASCVD Risk: low risk 2% - Aerobic exercise to reduce BP. Initial goal of 30 min walk 3-5x/week. Increase as tolerated. - low-sodium diet (goal: <2g/day) and heart healthy diet such as DASH to reduce BP and prevent ASCVD. - Home BP monitoring 1-2 x day with goal of <140/90. - Seek immediate medical attention for chest pain, palpitations, SOB, syncope, or sudden changes in mental status. - Do not change or discontinue current prescriptions without first consulting health care provider Assessment & Plan (02/26/2023 1:49 PM EDT): Maintenance: BMP: ordered Lipid Panel: ordered ASCVD Risk: Calculate pending updated labs -Today elevated patient just with mild headache clonidine order at the office I started n losartan 100mg, chlortalidone 25mg and amlodipine 5 mg plan is return for nurse visit in 1 week if not at goal increase amlodipine to 10mg and then f/u with me in 3 months - Aerobic exercise to reduce BP. Initial goal of 30 min walk 3-5x/week. Increase as tolerated. - low-sodium diet (goal: <2g/day) and heart healthy diet such as DASH to reduce BP and prevent ASCVD. - Home BP monitoring 1-2 x day with goal of <140/90. - Seek immediate medical attention for chest pain, palpitations, SOB, syncope, or sudden changes in mental status. - Do not change or discontinue current prescriptions without first consulting health care provider Bilateral low back pain without sciatica 023 Encounters Date Type Department Care Team Description 06/06/2024 Orders Only [facility] External Provider, [facility] from Last 3 Months Immunizations Name Administration Dates Next Due Hep B, adult 01/13/2019,12/16/2018 Influenza Injectable Quadriv alant Preservative Free IIV4 MDCK 02/04/2020 Influenza injectable quadriv alent IIV4 with preservative 03/08/2018 Influenza injectable quadrivalent preservative f ree 02/26/2023 Influenza, seasonal, injectable, preservative fr ee 03/13/2024 Pfizer Covid-19 Vaccine 12+ Bivalent 06/26/2022 Tdap 12/16/2018 Family History Medical History Relation Name Comments Diabetes Father Hypertension Father Lung cancer Maternal Grandmother Breast cancer Mother Relation Name Status Comments Father Maternal Grandmother Mother Social History Tobacco Use Types Packs/Day Years Used Date Smoking Tobacco: Never Passive Smoke Exposure: Never Smokeless Tobacco: Never Tobacco Cessation:Counseling Given: Not Answered Alcohol Use Standard Drinks/Week Comments Never 0 (1 standard drink = 0.6 oz pur e alcohol) Alcohol Answer Date Recorded Frequency of Alcohol Consumption Not on file 03/13/2024 Average Number of Drinks Not on file 024 Frequency of Binge Drinking Not on file 03/03 Score 0 03/13/2024 Depression Answer Date Recorded Patient Health Questionnaire-9 Score 0 06/04/2023 Patient Health Questionnaire-9 Score 0 06/04/2023 Last PHQ-9: Questionnaire Data Not on file 0 06/04/2023 Housing Stability Answer Date Recorded What is your housing situation today? Not on sienna e 03/13/[address] you li ve. Do you have problems with any of the following? None of the above 03/13/2024 Food Insecurity Answer Date Recorded Within the past 12 months, y ou worried that your food would run out before you got money to buy more: Never True 03/13/2024 Within the past 12 months,th e food you bought just didn't last and you didn't have enough money to get more: Never True 03/2024 Transportation Answer Date Recorded In the past 12 months, has l ack of transportation kept you from medical appts, meetings, work or from getting things needed for daily living? No 03/13/2024 Utilities Answer Date Recorded In the past 12 months, has t he electric, gas, oil or water company threatened to shut off services in your home? No 03/13/2024 Depression Answer Date Recorded Patient Health Questionnaire-2 Score 0 06/04/2023 Internet Access Answer Date Recorded Internet Access Q1 Yes 03/13/2024 Internet Access Q2 Not on file 03/13/2024 Comments No Sex and Gender Information Value Date Recorded Sex Assigned at Female 03/02/2022 10:34 AM EDT Legal Sex Female 10:34 AM EDT Gender Identity Female 03/02/2022 10:34 AM EDT Sexual Orientation Choose not to disclose 2021 10:34 AM EDT Last Filed Vital Signs Vital Sign Reading Time Taken Comments Blood Pressure 137/78 03/20/2024 11:33 AM EST Pulse 96 03/20/2024 11:33 AM EST Temperature 36.1 ??C (97 ??F) 03/20/2024 11:33 AM EST Respiratory Rate 16 03/20/2024 11:33 AM EST Oxygen Saturation 98% 03/13/2024 10:24 AM EST Inhaled Oxygen Concentration - - Weight 90.5 kg (199 lb 9.6 oz) 03/20/2024 11:33 AM EST Height 162.6 cm (5' 4 ) 03/20/2024 11:33 AM EST Body Mass Index 34.26 03/20/2024 11:33 AM EST Plan of Treatment Health Maintenance Due Date Last Done Comments Family Planning (PISQ) 1998 Hepatitis B Vaccines (3 of 3 - 19+ 3-dose series) 06/18/2019 01/13/2019, 12/16/2018 HPV/Cotest 09/09/2023 09/08/2018 COVID-19 Vaccine ( season) 2024 06/26/2022, 03/26/2021, 07/24/2020 SDOH Screening 02/05/2024 02/04/2023 Depression Screening 06/04/2024 06/04/2023, 06/04/19 24 Mammogram 09/12/2024 09/13/2023 Alcohol/Substance Use Screening 03/13/2025 03/13/2024 Diabetes: Hemoglobin A1C 03/13/2025 024, 03/19/2023, 08/14/2020 Tobacco Screening 03/20/2025 03/20/2024 Lipid Panel 03/19/2028 03/19/2023, 03/0 07/2021, 08/14/2020 DTaP/Tdap/Td Vaccines (2 - Td or Tdap) 12/16/2028 12/16/2018 Cervical Cancer Screening 03/20/2029 Pap Smear 03/20/2029 03/20/2024 Zoster Vaccines (1 of 2) 2033 RSV Patients and Patients Aged 60 years or older (1 - 1-dose 75+ series) 2058 HIV Screening Completed 03/19/2023, 08/14/2020 Hepatitis C Screening Completed 03/19/2023 Influenza Vaccine Completed 03/13/2024, , 02/04/2020, Additional history exists HIB Vaccines Aged Out No longer eligi ble based on patient's age to complete this topic HPV Vaccines Aged Out No longer eligi ble based on patient's age to complete this topic Hepatitis A Vaccines Aged Out No long er eligible based on patient's age to complete this topic IPV Vaccines Aged Out No longer eligi ble based on patient's age to complete this topic Meningococcal Vaccine Aged Out No shanta carmen eligible based on patient's age to complete this topic Pneumococcal Vaccine: Pediatrics (0 to 5 Years) and At-Risk Patients (6 to 49) Years) Aged Out No longer eligible based on patient's age to complete this topic RSV under 20 months Aged Out No longe r eligible based on patient's age to complete this topic Rotavirus Vaccines Aged Out No longer eligible based on patient's age to complete this topic Procedures Procedure Name Priority Date/Time Associated Diagnosis Comments US PELVIS TRANSVAGINAL Routine 11:30 AM EST PAP SMEAR Routine 03/20/2024 12:00 AM EST Encounter for screening for cervical cancer POCT GLYCATED HEMOGLOBIN, TOTAL Routine 03/13/2024 2:39 PM EST Prediabetes BI MAMMOGRAM SCREENING TOMOSYNTHESIS BILATERAL Routine 09/13/2023 2:00 PM EDT HEPATITIS C AB W/REFL TO HCV RNA, QN, PCR Routine 03/19/2023 8:48 AM EST Preventative health care HIV 1/2 ANTIGEN/ANTIBODY, FOURTH GENERATION W/RFL Routine 03/19/2023 8:48 AM EST Preventative health care LIPID PANEL, STANDARD Routine 03/19/2023 8:48 AM EST Preventative health care ZZZ HISTORICAL HPV MRNA E6/E7 Routine 09/08/2018 10:19 AM EDT from Last 3 Months or Most Recently Relevant to Health Maintenance Results * US Pelvis Transvaginal (06/06/2024 11:30 AM EST) Anatomical Region Laterality Modality Pelvis Ultrasound 06/06/2024 11:3 0 AM EST Narrative 06/06/2024 12:55 PM EST ? [facility] ?[address] ?[place] [address] ? Ultrasound Report ? Signed ? Patient: Scott Elizalde,Tessa ?MR#: ?? [id number] ? : 1985 ?Acct:[id number] ? Age/Sex: 39 / F ?ADM Date: 06/06/24 ? Loc: HO.US ? Attending Dr: Marie Friedman CNM ? Ordering Physician: Marie Friedman CNM ?? Date of Service: 06/06/24 ?? Procedure(s): US pelvic and transvaginal ?? Accession Number(s): [id number] ? cc: Alem Rubalcava MD; Marie Friedman CNM ? EXAMINATION: ? US PELVIS ? CLINICAL INFORMATION: ? Vaginal bleed. ? COMPARISON: ?? January 22, 2021. ? TECHNIQUE: ?? Ultrasound of the pelvis is performed using both transabdominal and ?? transvaginal transducers along with Doppler. Transvaginal imaging is ?? performed due to inadequate visualization transabdominally. ? FINDINGS: ?? Uterus: ?? The uterus is anteverted and measures 9 x 5 x 6 cm. ??Volume: 136 cc. ? The double wall endometrial thickness is 15 mm. ? There is a 1 cm mixed hypo to isoechoic nodule in the myometrium just ?? beneath the endometrium. ??No gross flow on color Doppler interrogation ?? within this nodular lesion. ? The endocervical canal and cervix are normal. ? Adnexa: ?? Both ovaries are visualized. There is normal color flow to the adnexa. ?? There is no ovarian torsion. ??There is no pelvic ascites or fluid ?? collection. ? Right ovary measures 3 x 3 x 1 cm. Volume: 4 cc. ? Left ovary measures 4 x 2 x 2 cm. Volume: 8 cc. There is a 1.8 cm ?? heterogeneous hyperechoic lesion without flow on color Doppler ?? interrogation. ? US/US pelvic and transvaginal ?? IMPRESSION: ?? 1 cm uterine fibroid probable submucosal. ?? No ovarian torsion. ?? 1.8 cm complex cystic lesion left ovary. ? Electronically signed by: ??Ernesto Ivey MD ??06/06/2024 12:52 PM ?? EST RP ? Dictated By: ?Ernesto Posey MD ? Signed By: ?<Electronically signed by Ernesto Olson MD in OV> ? 06/06/24 1252 ? DD/ 1130 ? TD/TT: 06/06/24 1153 ? Cost Recorder: ? Procedure Note Donotuseinterpreter, Image - 06/06/2024 [place] [id number] Ultrasound Report Signed Patient: Serge Parnell#: [id number] : 1985Acct:[id number] Age/Sex: 39 / FADM Date: 06/06/24 Loc: HO.US Attending Dr: Marie Friedman CNM Ordering Physician: Marie Friedman CNM Date of Service: 06/06/24 Procedure(s): US pelvic and transvaginal Accession Number(s): [id number] cc: Alem Rubalcava MD; Marie Friedman CNM EXAMINATION: US PELVIS CLINICAL INFORMATION: Vaginal bleed. COMPARISON: January 22, 2021. TECHNIQUE: Ultrasound of the pelvis is performed using both transabdominal and transvaginal transducers along with Doppler. Transvaginal imaging is performed due to inadequate visualization transabdominally. FINDINGS: Uterus: The uterus is anteverted and measures 9 x 5 x 6 cm. Volume: 136 cc. The double wall endometrial thickness is 15 mm. There is a 1 cm mixed hypo to isoechoic nodule in the myometrium just beneath the endometrium. No gross flow on color Doppler interrogation within this nodular lesion. The endocervical canal and cervix are normal. Adnexa: Both ovaries are visualized. There is normal color flow to the adnexa. There is no ovarian torsion. There is no pelvic ascites or fluid collection. Right ovary measures 3 x 3 x 1 cm. Volume: 4 cc. Left ovary measures 4 x 2 x 2 cm. Volume: 8 cc. There is a 1.8 cm heterogeneous hyperechoic lesion without flow on color Doppler interrogation. US/US pelvic and transvaginal IMPRESSION: 1 cm uterine fibroid probable submucosal. No ovarian torsion. 1.8 cm complex cystic lesion left ovary. Electronically signed by: Ernesto Ivey MD 06/06/2024 12:52 PM EST RP Dictated By: Ernesto Posey MD Signed By: <Electronically signed by Ernesto Olson MDin OV> 06/06/24 1252 DD/ 1130 TD/TT: 06/06/24 1153 Cost Recorder: us [facility] External Provider IMG US PROCEDURES Final Result * Pap Smear (03/20/2024 12:00 AM EST) Swab 03/20/2024 03/21/2024 9:1 0 AM EST Narrative [facility] - 03/23/2024 1:46 PM EST ----- ------- Name: Tessa Parnell ?Age/Sex: 39/F ? : 1985 Unit#: [id number] ?? Attend Dr: Julissa De Anda ?Re03/20/24 ?Status: DEP REF ? Location: HO.LNP ?Disch: ? ----- ------- SPEC : [id number] ?RECD: 03/21/24 ? STATUS: ??SOUT ? REQ NUM: [id number] ? FAISAL: 03/20/24 ? SUBM DR: Alem Rubalcava MD ? ENTERED: ??03/21/24 ?SP TYPE: Pap Smr ?OTHR DR: ? ORDERED: ??Pap Smear ? Interpretation ?? Satisfactory for evaluation. ?? Negative for intraepithelial lesion or malignancy. ?? No endocervical cells seen. ?? Scant cellularity. ? HPV High Risk: ??Negative ? HPV Genotyping 16: ??Negative ?? HPV Genotyping 18: ??Negative ?Clinical Information LMP: 02/17/2024 Previous PAP test: Unknown date, WNL ? Material Received ?? ThinPrep-Vaginal/Cervical ----- ------- Signed (signature on file) DAVID Lawrence (ASCP) 03/23/24 1346 ? ----- ------- ? END OF REPORT ? Alem De Anda MD LAB CYTOLOGY ORDERABL ES Final Result [facility] [address] [place], [place] [phone] * POCT HGB A1C (03/13/2024 2:39 PM EST) Hemoglobin A1C 5.8 4.0 - 6.0 % QC Media Lot # [id number] Lot# Expiration Date [id number] Blood 03/13/2024 2:39 PM EST Alem De Anda MD POINT OF CARE TEST EN TER/EDIT ORDERABLES Final Result * BI Mammogram Screening Tomosynthesis Bilateral (09/13/2023 2:00 PM EDT) Anatomical Region Laterality Modality Breast Bilateral Mammography 09/13/2023 2:00 PM EDT Narrative 10/14/2023 2:42 PM EDT ? [facility] ? [address] ?[place] [address] ? Mammography Report ? Signed ? Patient: Chavez Elizalde,Tessa ?MR#: ?? [id number] ? : 1985 ?Acct:[id number] ? Age/Sex: 38 / F ?ADM Date: 09/13/23 ? Loc: HO.MAMMO ? Attending Dr: Alem De Anda MD ? Ordering Physician: Alem Rubalcava MD ?Results: ?? 1Negative ? Date of Service: 09/13/23 ?Follow Up: 1 Year From Orig ?? inal Mammogram ? Procedure(s): MM tomosynthesis screening BI ?? Accession Number(s): [id number] ? cc: Alem Rubalcava MD ? EXAMINATION: ?? MM SCREENING DIGITAL BREAST TOMOSYNTHESIS, BILATERAL ? CLINICAL INFORMATION: ? Screening. Asymptomatic. ? COMPARISON: ?? Mammography: This is a baseline study. ? TECHNIQUE: ?? Digital breast tomosynthesis is performed in both the craniocaudal and ?? mediolateral oblique views along with computer-aided detection (CAD). ?? Synthesized 2D images are generated from the tomosynthesis. ? FINDINGS: ?? There are scattered areas of fibroglandular density (ACR BI-RADS breast ?? composition Category b). ? There are no significant masses, abnormal calcifications, or other ?? abnormalities. ? MM/MM tomosynthesis screening BI ?? IMPRESSION: ?? No mammographic evidence of malignancy. ? ASSESSMENT: ? BI-RADS BI-RADS 1 - Negative ? RECOMMENDATION: ?? Routine annual mammography screening. ? 1 year F/U ? This examination should not preclude the clinical evaluation of a ?? suspicious palpable abnormality. ? This patient's information was entered into a reminder system with a ?? target due date for their next mammogram. ? Dictated By: ?Jasmine Azevedo MD ? Signed By: ?<Electronically signed by Jasmine Azevedo MD in OV> ? 10/14/23 1438 ? DD/ 1400 ? TD/TT: ? Cost Recorder: ? Procedure Note Antwan, Image - 10/14/2023 [facility] [address] [place] [address] Mammography Report Signed Patient: Tessa ParnellMR#: [id number] : 1985Acct:[id number] Age/Sex: 38 / FADM Date: 09/13/23 Loc: HO.MAMMO Attending Dr: Alem De Anda MD Ordering Physician: Alem Rubalcava MDResults: 1Negative Date of Service: 09/13/23Follow Up: 1 Year From Orig inal Mammogram Procedure(s): MM tomosynthesis screening BI Accession Number(s): [id number] cc: Alem Rubalcava MD EXAMINATION: MM SCREENING DIGITAL BREAST TOMOSYNTHESIS, BILATERAL CLINICAL INFORMATION: Screening. Asymptomatic. COMPARISON: Mammography: This is a baseline study. TECHNIQUE: Digital breast tomosynthesis is performed in both the craniocaudal and mediolateral oblique views along with computer-aided detection (CAD). Synthesized 2D images are generated from the tomosynthesis. FINDINGS: There are scattered areas of fibroglandular density (ACR BI-RADS breast composition Category b). There are no significant masses, abnormal calcifications, or other abnormalities. MM/MM tomosynthesis screening BI IMPRESSION: No mammographic evidence of malignancy. ASSESSMENT: BI-RADS BI-RADS 1 - Negative RECOMMENDATION: Routine annual mammography screening. 1 year F/U This examination should not preclude the clinical evaluation of a suspicious palpable abnormality. This patient's information was entered into a reminder system with a target due date for their next mammogram. Dictated By: Jasmine Azevedo MD Signed By: <Electronically signed by Jasmine Azevedo MD in OV> 10/14/23 1438 DD/ 1400 TD/TT: Cost Recorder: Alem De Anda MD IMG BI PROCEDURES Fin al Result * Hepatitis C Antibody with Reflex to HCV, RNA, Quantitative, Real-Time PCR (03/19/2023 8:48 AM EST) Hepatitis C Antibody Nonreactive Nonreactive [facility] Comment:Antibodies to HCV no t detected; does not exclude early acuteHCV infection. Blood Venous blood specimen / Unknown 03/19/2023 8:48 AM EST 03/19/2023 11:27 AM EST Alem De Adna MD LAB BLOOD ORDERABLES Final Result [facility] [address] [place] [phone] * HIV-1/2 Antigen and Antibodies, Fourth Generation, with Reflexes (03/19/2023 8:48 AM EST) HIV AB/AG Nonreactive Nonreactive [facility] Comment:HIV-1 p24 Ag and/or HIV-1/HIV-2 Ab not detected.A test result that is nonreactive does not exclude thepossibility of exposure to or infection with HIV-1 and/orHIV-2. Nonreactive results in this assay for individualswith prior exposure to HIV-1 and/or HIV-2 may be due toantigen and antibody levels that are below the limit ofdetection of this assay.The [employer] HIV Ag/Ab Combo assay result andsupplemental assay results should be interpreted inconjunction with the patient's clinical presentation,history and other laboratory results. If the results areinconsistent with clinical evidence, additional testing issuggested to confirm the result. Blood Venous blood specimen / Unknown 03/19/2023 8:48 AM EST 03/19/2023 11:27 AM EST us Alem De Anda MD LAB BLOOD ORDERABLES Final Result [facility] [address] [place] [phone] * (ABNORMAL) Lipid Panel, Standard (03/19/2023 8:48 AM EST) Triglycerides 77 <150 mg/dL [facility] Comment:Desirable Triglyceri de: less than 150 mg/dLBorderline High Triglyceride 150-199 mg/dLHigh Triglyceride: 200-499 mg/dLVery High Triglyceride: greater than or equal to 5OO mg/dL Cholesterol 146 <200 mg/dL [facility] Comment:Desirable Cholestero l: less than 200 mg/dLBorderline High Cholesterol: 200-239 mg/dLHigh Cholesterol: greater than 239 mg/dL LDL Cholesterol Calculated 100(H) <100 mg/dL [facility] Comment:Desirable LDL: less than 100 mg/dLNear Optimal/Above Optimal LDL: 110- 129 mg/dLBorderline High LDL: 130-159 mg/dLHigh LDL: 160-189 mg/dLVery High LDL: greater than or equal to 190 mg/dL HDL Cholesterol 31(L) >40 mg/dL [facility] Comment:Desirable HDL: great er than 40 mg/dL Note: This HDL assay may give artificially low results in patients with liver disease. Blood Venous blood specimen / Unknown 03/19/2023 8:48 AM EST 03/19/2023 11:27 AM EST Alem De Anda MD LAB BLOOD ORDERABLES Final Result [facility] [address] [place] [address] [phone] * HPV mRNA E6/E7 (09/08/2018 10:19 AM EDT) HPV mRNA E6/E7 Not Detected NOT DETECTED [facility] Comment: This test was performed using the APTIMA(R) HPV Assay ([employer] This assay detects E6/E7 viral messenger RNA (mRNA) from 14 high-risk HPV types (16,18,31,33,35,39,45,51, 52,56,58,59,66,68). For additional information please refer to: http://education.[employer]/faq/MVC907q5 (This link is being provided for informational/ educational purposes only.) The analytical performance characteristics of this assay have been determined by [employer] [place], [place]. The modifications have not been cleared or approved by the FDA. This assay has been validated pursuant to the CLIA regulations and is used for clinical purposes. Test Performed by [facility], [employer] [facility], [address] [place] [address] Dave Judd M.D., Ph.D., Director of Laboratories , CLIA [id number] Please note: ??Effective 01/13/2016, HPV testing will be performed using [employer]'s APTIMA test which targets mRNA. Detecting mRNA instead of DNA, as in older methods, offers significant improvements in specificity. 09/08/2018 10:1 9 AM EDT us Maida Randhawa CNM HISTORICAL/NON ORDERABLE LABS Final Result [facility] [address] from Last 3 Months or Most Recently Relevant to Health Maintenance Insurance [facility] Care Teams Sane Nurse Relationship Specialty Start Date End Date Alem Rubalcava MD [address] [place] [id number] PCP - General Family Medicine 03/08/18
--- OUTSIDE RECORDS SUMMARY | 2024-07-13 17:02 | XMS_ITS | Encounter Summary ---
Author Organization [employer] Address [address] [facility] 7 [place] [address] Care Team Providers Care Wood Inspector Name Role Phone Alem Rubalcava MD Primary Care Provide r Reason for Visit * Reason Onset Date Comments Med Refill 04/16/2023 Encounter Details Date Type Department Care Team (Late st Contact Info) Description 04/16/2023 Refill [facility] MED[facility]INE [address] [place] [address] Alem Rubalcava MD [address] [place] [address] Essential hypertension Social History Tobacco Use Types Packs/Day Years Used Date Smoking Tobacco: Never Smokeless Tobacco: Never Housing Stability Answer Date Recorded What is your housing situation today? I have torres pepe 02/17/[address] you li ve. Do you have problems with any of the following? None of the above 02/17/2023 Food Insecurity Answer Date Recorded Within the past 12 months, y ou worried that your food would run out before you got money to buy more: Never True 02/17/2023 Within the past 12 months,th e food you bought just didn't last and you didn't have enough money to get more: Never True Transportation Answer Date Recorded In the past 12 months, has l ack of transportation kept you from medical appts, meetings, work or from getting things needed for daily living? No 02/17/2023 Utilities Answer Date Recorded In the past 12 months, has t he electric, gas, oil or water company threatened to shut off services in your home? No 02/17/2023 Comments Unknown Sex and Gender Information Value Date Recorded Sex Assigned at Female 03/02/2022 10:34 AM EDT Legal Sex Female 10:34 AM EDT Gender Identity Female 03/02/2022 10:34 AM EDT Sexual Orientation Choose not to disclose 2021 10:34 AM EDT documented as of this encounter Plan of Treatment Not on file documented as of this encounter Visit Diagnoses Diagnosis Essential hypertension Unspecified essential hypertension documented in this encounter Care Teams Wood Inspector Relationship Specialty Start Date End Date Alem Rubalcava MD [address] [place] [address] PCP - General Family Medicine 03/08/18 documented as of this encounter
== END 2024-07-13 14:27 | disposition home or self-care (01) ==
LOC: HO.HWS 13:27
PROVIDERS: PCP Internal Medicine; Visit Provider Advanced Practice Midwife
DX: Z71.2 Person consulting for explanation of examination or test findings (principal); N83.299 Other ovarian cyst, unspecified side; N93.9 Abnormal uterine and vaginal bleeding, unspecified; D21.9 Benign neoplasm of connective and other soft tissue, unspecified
CPT/HCPCS: 99213

== ENCOUNTER → 2024-07-13 13:27 | Outpatient (BNVA) | payer OTHER, SELFPAY | PROVIDERS: PCP Internal Medicine; Visit Provider Advanced Practice Midwife | DX: N83.299 Other ovarian cyst, unspecified side (principal); N93.9 Abnormal uterine and vaginal bleeding, unspecified; D21.9 Benign neoplasm of connective and other soft tissue, unspecified; Z71.2 Person consulting for explanation of examination or test findings | CPT/HCPCS: 81025; 99212 ==

== ENCOUNTER 2024-07-25 07:34 | Outpatient (AMB) | payer OTHER, SELFPAY ==
--- NOTE | 2024-07-25 07:45 | A.OFFVIS_ITS ---
Vital Signs 07/25/24 07:52 BP 112/72 Intake Visit Reasons: EMB/Mirena insertion Electrical Wirer Required: Yes Electrical Wirer Language: Outreach Associate Services: Electrical Wirer Present Electrical Wirer Name: Kamilah Gill Net Stringer: Gill Net Stringer Present (Kamilah) Allergies No Known Allergies Allergy (Verified 07/25/24 07:53) HPI Comments Details: Patient is here today for an EMB and a Mirena IUD insertion. History of AUB. Currently on her menstrual cycle with a heavy flow. UPT was negative. [facility] Medical History (Updated 07/25/24 @ 08:25 by Marie Friedman CNM) IUD (intrauterine device) in place Fibroid Complex ovarian cyst Abnormal uterine bleeding (AUB) Hypertension Anemia Obesity (BMI 30.0-34.9) Surgical History Hx of tubal ligation Hx of section Family History Mother History of breast cancer Hypertension Diabetes mellitus Social History Alcohol intake: never Female Reproductive History Menstrual Age of Menarche: 8 Review of Systems Const All systems reviewed & are unremarkable except as noted in HPI and below Physical Exam Vital Signs: Last Vital Signs BP 112/72 07/25/24 07:52 Const General: cooperative, healthy appearing and no acute distress Orientation/consciousness: patient oriented x3 GI Inspection: Yes normal to inspection Palpation (GI): Soft to palpation and Other GI palpation findings present (Nontender) Rectal Exam - Female: visual inspection normal General: Yes bladder normal to palpation External Female Exam: normal appearance of the urethra Speculum Exam - Vagina: normal appearance of the vagina, normal palpation, normal vaginal discharge and vaginal bleeding Speculum Exam - Cervix: normal appearance of the cervix and normal palpation Bimanual exam- vagina & uterus: normal bimanual exam, normal palpation, uterine size normal, bladder normal to palpation, normal palpation, uterine shape normal and non-tender Bimanual Exam- Adnexa, other: normal adnexae OB/external & speculum: vaginal bleeding Neuro General: patient oriented x3 Office Procedures IUD Insert/Removal Details 08697-CPA Insertion Procedure code (CPT) selection complete Contraception Insert/Removal Details Details: The patient is here today for a Mirena IUD insertion. She was counseled on the side effects including: menstrual cycle changes, pain, infection, bleeding, or expulsion. Risks of injury to the vagina, cervix, uterus, tubes, ovaries, bowel, bladder, and any adjacent tissue, resulting in nerve damage, scarring, and pain. Risks complications for the procedure that may require other test including ultrasounds, Xray, CT or MRI scan, surgery, anesthesia, blood transfusion. A urine test was completed and was negative. She was consented for the IUD insertion and has signed the consent form. All questions were answered. IUD Insertion: The IUD was inserted immediately after the EMB procedure, see above notes for EMB procedure. The device was inserted and released with a gentle motion. Bleeding from the tenaculum sites was minimal, Monsel's utilized for hemostasis. The strings were trimmed to 3cm. All of the equipment was removed and the bimanual was normal, no tip was palpable at the cervical os. The patient tolerated the procedure well and left the office in good condition. Post IUD Insertion Care: There may be some post insertion bleeding for several days that is usually light and can turn to a light brown or pink in color. Mild cramping may occur. Nothing in the vagina including: tampons, douching or intimacy for several days. You may take an over the counter mild analgesia like Tylenol or Advil (if no allergies), per the manufacturers recommendations on dosing and frequency. Fol low the directions completely. Call the office if any: fever (over 100.4), flu like symptoms, abdominal pain, worsening cramping not resolved with over the counter medications, foul smelling vaginal odor, signs of infected appearing discharge, or heavy bleeding. Use a condom for a back up method if indicated for 7 days. Always use a condom for STI prevention; IUD's are not protective against STD's. Return to the office in 4-6 weeks for IUD recheck. The IUD will be utilized for 5 years and then replaced as needed. This note is constructed using voice recognition software. While every effort h as been made to ensure accuracy, it help desk associate errors may have been included. 87178 - Insertion Endometrial Biopsy Details: The patient is here today for an endometrial biopsy due to AUB to rule out any pathology including atypical, hyperplasia or cancer cells of the uterus. She was counseled regarding anticipatory guidance for the procedure including the risks for pain, infection, bleeding, perforation, potential injury to the tissues may include the cervix, uterus, tubes, bladder and bowels. These injuries may include further treatment and evaluation including surgery, blood transfusions, antibiotics, hospitalizations and anesthesia. Permanent injury and scarring can occur. She was consented for the procedure, and the consent forms were signed. She is agreeable to have the procedure today. All questions were answered. Endometrial Biopsy Procedure: The patient was placed in the dorsal lithotomy position and a sterile speculum inserted. Using aseptic technique for the procedure. The cervix was cleansed with Betadine x 3 swabs. A single toothed tenaculum was placed on the cervix for stabilization and the uterus was sounded to 9 cm with a 4mm pipelle, and tissue sample obtained. Minimal bleeding was observed. The tissue sample was placed in formalin in a patient labeled container by staff assisting and sent to the pathology department for processing and interpretation. The patient tolerate the procedure well and was in good condition when leaving the department. Endometrial Biopsy Post Procedure Care: Nothing in the vagina including: tampons, douching or intimacy until all the bleeding has subsided. There may be some post procedure bleeding for several days, this bleeding is usually light and may turn to a light brown or pink color. Mild cramps may occurs. Nothing in the vaginal including: tampons, douching, or intimacy until all the bleeding has subsided. You may take an over the counter mild analgesic such as Tylenol or Advil (if no allergies) per the manufactures recommendation on dosing, frequency, and follow the directions completely. Call the office if any: fever (over 100.4), flu like symptoms, abdominal pain (worse than cramping), foul smelling, infected appearing vaginal discharge, or heavy bleeding. If indicated: Use condoms to prevent and STI's, and only after the bleeding has stopped completely. Return to the office in 2 weeks for results and plan of care. This note is constructed using voice recognition software. While every effort has been made to ensure accuracy, it help desk associate errors may have been included. 94546-Xrzjqhuvoxd Biopsy Office Meds Mirena 21 mcg/24 hr (up to 8 years) 52 mg intrauterine device Performing Provider: Marie Friedman CNM Performing Location: [facility] Administered by: Kamilah Shaw CMA on 07/25/24 08:22 Dose Route Admin Location Dispensed Lot Number Expiration Date [employer] Operator 1 device intrauterine hmc 1 device [id number] 09/30/26 26506-707-69 [employer] Results AMB Test Urine AMB Test Urine Negative Last Edit by LUKE Vasquez on 07/25/24 07:54 Results Reviewed Results Reviewed: Laboratory Last Values Tst Clinic Negative 07/25/24 07:54 [place] [address] Ultrasound Report Signed Patient: Tessa Parnell MR#: [id number] : 1985 Acct:[id number] Age/Sex: 39 / F ADM Date: 06/06/24 Loc: HO.US Attending Dr: Marie Friedman CNM Ordering Physician: Marie Friedman CNM Date of Service: 06/06/24 Procedure(s): US pelvic and transvaginal Accession Number(s): [id number] cc: Alem Rubalcava MD; Marie Friedman CNM~ EXAMINATION: US PELVIS CLINICAL INFORMATION: Vaginal bleed. COMPARISON: January 22, 2021. TECHNIQUE: Ultrasound of the pelvis is performed using both transabdominal and transvaginal transducers along with Doppler. Transvaginal imaging is performed due to inadequate visualization transabdominally. FINDINGS: Uterus: The uterus is anteverted and measures 9 x 5 x 6 cm. Volume: 136 cc. The double wall endometrial thickness is 15 mm. There is a 1 cm mixed hypo to isoechoic nodule in the myometrium just beneath the endometrium. No gross flow on color Doppler interrogation within this nodular lesion. The endocervical canal and cervix are normal. Adnexa: Both ovaries are visualized. There is normal color flow to the adnexa. There is no ovarian torsion. There is no pelvic ascites or fluid collection. Right ovary measures 3 x 3 x 1 cm. Volume: 4 cc. Left ovary measures 4 x 2 x 2 cm. Volume: 8 cc. There is a 1.8 cm heterogeneous hyperechoic lesion without flow on color Doppler interrogation. US/US pelvic and transvaginal IMPRESSION: 1 cm uterine fibroid probable submucosal. No ovarian torsion. 1.8 cm complex cystic lesion left ovary. Electronically signed by: Ernesto Ivey MD 06/06/2024 12:52 PM [facility] Dictated By: Ernesto Posey MD Signed By: <Electronically signed by Ernesto Olson MD in OV> 06/06/24 1252 DD/ 1130 TD/TT: 06/06/24 1153 Senior Tableau Developer: Assessment & Plan Assessment & Plan (1) Abnormal uterine bleeding (AUB): Code(s): N93.9 - Abnormal uterine and vaginal bleeding, unspecified Category: Medical Plan: See EMB notes. (2) Complex ovarian cyst: Code(s): N83.299 - Other ovarian cyst, unspecified side Category: Medical Plan: Ultrasound scheduled for August 15 in follow up appointment in the office is booked. Advised to call if there is any pelvic pain on the left side for sooner evaluation. (3) Encounter for IUD insertion: Code(s): Z30.430 - Encounter for insertion of intrauterine contraceptive device Category: Medical Plan: See procedure notes. Plan See procedure notes. The patient expressed understanding and agreement with the plan of care. All of her questions and concerns were addressed to the best of my ability. This note is constructed using voice recognition software. While every effort has been made to ensure accuracy, it help desk associate errors may have been included. Orders: Orders AMB IUD Insertion/Removal - Practice Supplied Today Z30.430 - Encounter for insertion of intrauterine contraceptive device AMB HCG Urine Test Today N93.9 - Abnormal uterine and vaginal bleeding, unspecified Surgical Today N93.9 - Abnormal uterine and vaginal bleeding, unspecified Coding Level of Care Code Procedure Only Diagnoses Abnormal uterine bleeding (AUB) N93.9 Complex ovarian cyst N83.299 Encounter for IUD insertion Z30.430 CPT Codes Details - CPT: 97130-SCY Insertion ([id number]) Details - Contraception: 20235 - Insertion ([id number]) Endometrial Biopsy - CPT: 91526-Nfefpusbvkx Biopsy ([id number]) Comment 2 procedures
[2024-07-25 07:52] VITALS: BP 112/72
== END 2024-07-25 08:28 | disposition home or self-care (01) ==
LOC: HO.HWS 07:34
PROVIDERS: PCP Internal Medicine; Visit Provider Advanced Practice Midwife
DX: N93.9 Abnormal uterine and vaginal bleeding, unspecified (principal); N83.299 Other ovarian cyst, unspecified side; Z30.430 Encounter for insertion of intrauterine contraceptive device
CPT/HCPCS: 58100; 58300

== ENCOUNTER 2024-07-25 07:34 | Outpatient (REF) | payer OTHER, SELFPAY | END 2024-07-25 07:35 | disposition home or self-care (01) | LOC: HO.LNP 07:34 | PROVIDERS: PCP Internal Medicine; Visit Provider Advanced Practice Midwife | DX: Z30.430 Encounter for insertion of intrauterine contraceptive device (principal); N93.9 Abnormal uterine and vaginal bleeding, unspecified; N83.299 Other ovarian cyst, unspecified side | CPT/HCPCS: 58100; 58300; 81025; 88305; J7298 ==

== ENCOUNTER 2024-07-27 10:45 | Outpatient (AMB) | payer OTHER, SELFPAY ==
--- NOTE | 2024-07-27 10:45 | A.OFFVIS_ITS ---
Intake Visit Reasons: emb results Intake Note: cell #[phone] Machine Tender Required: Yes Machine Tender Language: Quality Control Projectionist Services: Machine Tender Present Machine Tender Name: Kamilah Information Interpreted: non-clinical & clinical Conference Reservationist: Conference Reservationist Present Allergies No Known Allergies Allergy (Verified 07/25/24 07:53) Is last menstrual period known: Yes HPI Comments Details: Tele Health Visit Total time I personally spent on visit and management today: 15 minutes. Time spent included review of pertinent office notes in the electronic health record; review of laboratory and imaging results; review of personal family medical history; discussing diagnosis and plan of care with the patient; documenting the encounter in the EMR. Patient presents to discuss: Ultrasound findings, history of heavy menstrual bleeding and post IUD insertion. She reports her bleeding has diminished and denies any pelvic pain. [facility] Medical History (Updated 07/25/24 @ 08:25 by Marie Friedman CNM) IUD (intrauterine device) in place Fibroid Complex ovarian cyst Abnormal uterine bleeding (AUB) Hypertension Anemia Obesity (BMI 30.0-34.9) Surgical History Hx of tubal ligation Hx of section Family History Mother History of breast cancer Hypertension Diabetes mellitus Social History Alcohol intake: never Female Reproductive History Menstrual Age of Menarche: 8 Review of Systems Const All systems reviewed & are unremarkable except as noted in HPI and below Endo Reports no additional complaints Physical Exam Const General: cooperative, healthy appearing and no acute distress Psych Appearance: well kempt Attitude: cooperative Thought process: Normal thought process present Telehealth Telehealth Telehealth Platform: GIVVER Location of provider rendering services: practice address Location of patient: address on file Patient Identification confirmed using: Name, : Yes Telehealth method: video Patient verbally consented to treatment: Yes Patient verbally consented to billing insurance company: Yes Patient informed of any privacy concerns related to visit: Yes Results Reviewed Results Reviewed: [address] [address] Ultrasound Report Signed Patient: Tessa Parnell MR#: [id number] : 1985 Acct:[id number] Age/Sex: 39 / F ADM Date: 06/06/24 Loc: HO.US Attending Dr: Marie Friedman CNM Ordering Physician: Marie Friedman CNM Date of Service: 06/06/24 Procedure(s): US pelvic and transvaginal Accession Number(s): [id number] cc: Alem Rubalcava MD; Marie Friedman CNM~ EXAMINATION: US PELVIS CLINICAL INFORMATION: Vaginal bleed. COMPARISON: January 22, 2021. TECHNIQUE: Ultrasound of the pelvis is performed using both transabdominal and transvaginal transducers along with Doppler. Transvaginal imaging is performed due to inadequate visualization transabdominally. FINDINGS: Uterus: The uterus is anteverted and measures 9 x 5 x 6 cm. Volume: 136 cc. The double wall endometrial thickness is 15 mm. There is a 1 cm mixed hypo to isoechoic nodule in the myometrium just beneath the endometrium. No gross flow on color Doppler interrogation within this nodular lesion. The endocervical canal and cervix are normal. Adnexa: Both ovaries are visualized. There is normal color flow to the adnexa. There is no ovarian torsion. There is no pelvic ascites or fluid collection. Right ovary measures 3 x 3 x 1 cm. Volume: 4 cc. Left ovary measures 4 x 2 x 2 cm. Volume: 8 cc. There is a 1.8 cm heterogeneous hyperechoic lesion without flow on color Doppler interrogation. US/US pelvic and transvaginal IMPRESSION: 1 cm uterine fibroid probable submucosal. No ovarian torsion. 1.8 cm complex cystic lesion left ovary. Electronically signed by: Ernesto Ivey MD 06/06/2024 12:52 PM [facility] Dictated By: Ernesto Posey MD Signed By: <Electronically signed by Ernesto Olson MD in OV> 06/06/24 1252 DD/ 1130 TD/TT: 06/06/24 1153 Thermo Cementing Folder Operator: Assessment & Plan Assessment & Plan (1) Complex ovarian cyst: Code(s): N83.299 - Other ovarian cyst, unspecified side Category: Medical Plan Counseled regarding findings of: Complex ovarian cyst, which is often benign, and most resolve on their own overtime. Some develop into premalignant or malignant tumors. Limitations of testing for diagnostic purposes. Further monitoring and evaluation is recommended with US, possible CT, or MRI study. If persists, or is indicated (Ca-125, Carbohydrate Antigen 19-9, & Carcinoembryonic Antigen) labs will be ordered and referral to [facility] or general gynecology for MD care if indicated for possible surgical consult. Follow up in person for test results. All of her questions and concerns were addressed to the best of my ability and shared decision making. She is agreeable to the plan of care. This note is constructed using voice recognition software. While every effort has been made to ensure accuracy, transformer assembly supervisor errors may have been included. Orders: Orders US pelvic and transvaginal 08/21/24 N83.299 - Other ovarian cyst, unspecified side Coding Level of Care Code Tele Est Pt Level 3 (77196) Diagnoses Complex ovarian cyst N83.299
== END 2024-07-27 11:28 | disposition home or self-care (01) ==
LOC: HO.HWS 10:45
PROVIDERS: PCP Internal Medicine; Visit Provider Advanced Practice Midwife
DX: N83.299 Other ovarian cyst, unspecified side (principal)
CPT/HCPCS: 98013

== ENCOUNTER 2024-08-15 10:39 | Outpatient (REF) | payer OTHER, SELFPAY ==
--- NOTE | ~2024-08-15 | US_ITS ---
CLINICAL HISTORY: N83.299 - COMPLEX CYST Transabdominal and transvaginal pelvic ultrasound Limited left ovarian Doppler studies Comparison: None Findings: Uterus 11.5 x 3.8 x 5.9 cm. Endometrium 3 mm. IUD in proper position. No significant free fluid. 1 cm anterior fibroid noted. Right ovary is not identified. Left ovary 4.9 x 2.9 x 4.3 cm. 4.6 x 2.8 cm cyst with internal debris. Septation and wall thickening also noted. This is new compared to previous study. Recommend follow-up in 1-2 months. Arterial and venous color and spectral Doppler assessment of left ovary. There is normal flow to left ovary. Without evidence for ovarian torsion. Impression: Complex left ovarian cyst, recommend 1-2 month follow-up This document has been electronically signed by: Ayaan Mcgowan MD on 08/16/2024 20:18:02
--- OUTSIDE RECORDS SUMMARY | 2024-08-15 12:52 | XMS_ITS | Encounter Summary ---
Author Organization [employer] Address [address] [facility] 7 [place] [address] Care Team Providers Care Operations Program Manager Name Role Phone Alem Rubalcava MD Primary Care Provide r Reason for Visit * Reason Onset Date Comments Med Refill 04/16/2023 Encounter Details Date Type Department Care Team (Late st Contact Info) Description 04/16/2023 Refill [facility] MEDICINE [address] [place] [address] Alem Rubalcava MD [address] [place] [address] Essential hypertension Social History Tobacco Use Types [...] hypertension documented in this encounter Care Teams Operations Program Manager Relationship Specialty Start Date End Date Alem Rubalcava MD [address] [place] [address] PCP - General Family Medicine 03/08/18 documented as of this encounter
--- OUTSIDE RECORDS SUMMARY | 2024-08-15 12:52 | XMS_ITS | Clinical Summary ---
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 Role Phone Alem Rubalcava MD Primary [...] her on iron supplements, I will put Hall Manager referral Essential hypertension 09/01/2022 Assessment & Plan [...] Encounters Date Type Department Care Team Description 07/25/2024 Orders Only GENERIC EXTERNAL DATA DEPARTMENT Provider, Generic External Data 06/06/2024 Orders Only [facility] External Provider, [facility] from Last 3 Months Immunizations Name Administration [...] Procedure Name Priority Date/Time Associated Diagnosis Comments HEMATOXYLIN AND EOSIN STAIN Routine 07/25/2024 8:23 AM EDT US PELVIS TRANSVAGINAL Routine 11:30 AM EST [...] 03/19/2023 8:48 AM EST Preventative health care [facility] HISTORICAL HPV MRNA E6/E7 Routine 09/08/2018 10:19 AM EDT from Last 3 Months or Most Recently Relevant to Health Maintenance Results * Hematoxylin and Eosin Stain (07/25/2024 8:23 AM EDT) 07/25/2024 8:23 AM EDT 07/25/2024 11:53 AM EDT [facility] - 07/26/2024 4:09 PM EDT ----- ------- Name: Tessa Parnell ?Age/Sex: 39/F ? : 1985 Unit#: [id number] ?? Attend Dr: Marie Friedman CNM ?Re07/25/24 ?Status: DEP REF ? Location: HO.LNP ?Disch: ? ----- ------- SPEC : [id number] ? RECD: 07/25/24-1152 ? STATUS: ??SOUT ? REQ NUM: [id number] ? FAISAL: 07/25/24 ? SUBM DR: Marie Friedman CNM ? ENTERED: ??07/25/24-120 ?SP TYPE: Surgical ? OTHR DR: Alem Rubalcava MD ? ORDERED: ??HE Stain/2, Gross Micro L4 ? Diagnosis ?? Endometrium, biopsy: ??Benign endometrium with secretory glands and extensive glandular ?? and stromal breakdown; no atypia or carcinoma. ?Clinical History AUB ?Microscopic Description Microscopic sections reviewed. ? Material Received ?? EMB ? Gross Description Received in formalin labeled ?EMB? is a 2.0 x 2.0 x 1.0 cm aggregate of multiple tubular cast fragments of congested and hemorrhagic red-maroon tissue and blood, submitted in toto in cassettes A1 and A2. CEDS Copies To: ?? Alem Rubalcava MD ?? [facility] ?? [address] ?? [place] [address] ?? [phone] ?? Marie Friedman CNM ?? [facility] ?? [address] ?? [place] [address] ?? [phone] ----- ------- Signed (signature on file) Cinthya Rain 07/26/24 1609 ? ----- ------- ? END OF REPORT ? us Generic External Data Provider LAB BLOOD ORDERAB LES Final Result [facility] [address] [place] [address] [phone] * Pelvis Transvaginal (06/06/2024 11:30 AM EST) Anatomical Region Laterality Modality Pelvis Ultrasound 06/06/2024 11:3 0 AM EST Narrative 06/06/2024 12:55 PM EST ? [facility] ?[address] ?[place] [address] ? Ultrasound Report ? Signed ? Patient: Chavez Elizalde,Tessa ?MR#: ?? [id number] ? : 1985 ?Acct:[id number] ? Age/Sex: 39 / F ?ADM Date: 02/04/25 ? Loc: HO.US ? Attending Blayne Friedman CNM ? Ordering Physician: Marie Friedman CNM ?? Date of Service: 06/06/24 ?? Procedure(s): US pelvic and transvaginal ?? Accession Number(s): [id number] ? cc: Alem Rubalcava MD; Marie Friedman [...] Ivey MD ??06/06/2024 12:52 PM ?? EST ? Dictated By: ?Ernesto Posey MD ? Signed By: ?<Electronically signed by Ernesto Olson MD in OV> ? 06/06/24 1252 ? DD/ 1130 ? TD/TT: 06/06/24 1153 ? It Risk And Assurance Manager: ? Procedure Note Angie Moncada - 06/06/[address] [address] Ultrasound Report Signed Patient: Tessa Parnell#: [id number] : 1985Acct:[id number] Age/Sex: 39 / FADM Date: 06/06/24 Loc: HO.US Attending Dr: Marie Friedman CNM Ordering Physician: Marie Friedman CNM Date of Service: 06/06/24 Procedure(s): US pelvic and transvaginal Accession Number(s): [id number] cc: Alem Rubalcava MD; Marie Friedman CNM [...] 06/06/24 1252 DD/ 1130 TD/TT: 06/06/24 1153 It Risk And Assurance Manager: [facility] External Provider IMG US PROCEDURES Final Result * Pap Smear (03/20/2024 12:00 AM EST) Swab 03/20/2024 03/21/2024 9:1 0 AM EST Narrative [facility] - 03/23/2024 1:46 PM EST ----- ------- Name: Tessa Parnell ?Age/Sex: 39/F ? : 1985 Unit#: [id number] ?? Attend Dr: Julissa De Anda ?Re03/20/24 ?Status: DEP REF ? Location: HO.LNP ?Disch: ? ----- ------- SPEC : [id number] ?RECD: 03/21/24 ? STATUS: ??SOUT ? REQ NUM: [id number] ? FAISAL: 03/20/24-0000 ? SUBM DR: Alem Rubalcava MD ? ENTERED: ??03/21/24-943 ?SP TYPE: Pap Smr ?OTHR : ? ORDERED: ??Pap Smear ? Interpretation ?? [...] (signature on file) DAVID Lawrence (ASCP) 03/23/24 4026 ? ----- ------- ? END OF REPORT ? us Alem De Anda MD LAB CYTOLOGY ORDERABL ES Final Result [facility] [address] [place] [address] [phone] * POCT HGB A1C (03/13/2024 2:39 PM EST) Hemoglobin A1C 5.8 4.0 - 6.0 % QC Media Lot # [id number] Lot# Expiration Date , Blood 03/13/2024 2:39 PM EST us Alem De Anda MD POINT OF CARE TEST EN TER/EDIT ORDERABLES Final Result * BI Mammogram Screening Tomosynthesis Bilateral (09/13/2023 2:00 PM EDT) Anatomical Region Laterality Modality Breast Bilateral Mammography 09/13/2023 2:00 PM EDT Narrative 10/14/2023 2:42 PM EDT ? [facility] ? [address] ?[place] [address] ? Mammography Report ? Signed ? Patient: Chavez Elizalde,Tessa ?MR#: ?? [id number] ? : 1985 ?Acct:[id number] ? Age/Sex: 38 / F ?ADM Date: 05/13/24 ? Loc: HO.MAMMO ? Attending Dr: Alem De Anda MD ? Ordering Physician: Alem Rubalcava MD ?Results: ?? 1Negative ? Date of Service: 09/13/23 ?Follow Up: 1 Year From Orig ?? inal Mammogram ? Procedure(s): MM tomosynthesis screening BI ?? Accession Number(s): [id number] ? cc: Alem Rubalcava MD ? EXAMINATION: [...] by Jasmine Azevedo MD in OV> ? 10/14/238 ? DD/ 1400 ? TD/TT: ? It Risk And Assurance Manager: ? Procedure Note Antwan, Angie - 10/14/2023 [facility] [address] [place] [address] Mammography Report Signed Patient: Tessa ParnellMR#: [id number] : 1985Acct:[id number] Age/Sex: 38 / FADM Date: 09/13/23 Loc: HO.MAMMO Attending Dr: Alem De Anda MD Ordering Physician: Alem Rubalcava MDResults: 1Negative Date of Service: 09/13/23Follow Up: 1 Year From Orig inal Mammogram Procedure(s): MM tomosynthesis screening BI Accession Number(s): [id number] cc: Alem Rubalcava MD EXAMINATION: MM SCREENING [...] in OV> 10/14/23 1438 DD/ 1400 TD/TT: It Risk And Assurance Manager: us Alem De Anda MD IMG BI PROCEDURES Fin al Result * Hepatitis C Antibody with Reflex to HCV, RNA, Quantitative, Real-Time PCR (03/19/2023 8:48 AM EST) Hepatitis C Antibody Nonreactive Nonreactive [facility] Comment:Antibodies to HCV no t detected; does not exclude early acuteHCV infection. Blood Venous blood specimen / Unknown 03/19/2023 8:48 AM EST 03/19/2023 11:27 AM EST Alem De Anda MD LAB BLOOD ORDERABLES Final Result Performing Organization Address [facility] Co de Phone Number [facility] [address] [place] [address] [phone] * HIV-1/2 Antigen and Antibodies, Fourth Generation, with Reflexes (03/19/2023 8:48 AM EST) HIV AB/AG Nonreactive Nonreactive [facility] Comment:HIV-1 p24 Ag and/or HIV-1/HIV-2 Ab not detected.A test result that is nonreactive does not exclude thepossibility of exposure to or infection with HIV-1 and/orHIV-2. Nonreactive results in this assay for individualswith prior exposure to HIV-1 and/or HIV-2 may be due toantigen and antibody levels that are below the limit ofdetection of this assay.The Qminder HIV Ag/Ab Combo assay result andsupplemental assay results should be interpreted inconjunction with the patient's clinical presentation,history and other laboratory results. If the results areinconsistent with clinical evidence, additional testing issuggested to confirm the result. Blood Venous blood specimen / Unknown 03/19/2023 8:48 AM EST 03/19/2023 11:27 AM EST us Alem De Anda MD LAB BLOOD ORDERABLES Final Result Performing Organization Address [facility]/ZIP Co de Phone Number [facility] [address] [place] [address] [phone] * (ABNORMAL) Lipid Panel, Standard (03/19/2023 8:48 AM EST) Triglycerides 77 <150 mg/dL [facility] Comment:Desirable Triglyceri de: less than 150 mg/dLBorderline High Triglyceride 150-199 mg/dLHigh Triglyceride: 200-499 mg/dLVery High Triglyceride: greater than or equal to 5OO mg/dL Cholesterol 146 <200 mg/dL [facility] Comment:Desirable Cholestero l: less than 200 mg/dLBorderline High Cholesterol: 200-239 mg/dLHigh Cholesterol: greater than 239 mg/dL LDL Cholesterol Calculated 100(H) <100 mg/dL [facility] Comment:Desirable LDL: less than 100 mg/dLNear Optimal/Above Optimal LDL: 110- 129 mg/dLBorderline High LDL: 130-159 mg/dLHigh LDL: 160-189 mg/dLVery High LDL: greater than or equal to 190 mg/dL HDL Cholesterol 31(L) >40 mg/dL [facility] Comment:Desirable HDL: great er than 40 mg/dL Note: This HDL assay may give artificially low results in patients with liver disease. Blood Venous blood specimen / Unknown 03/19/2023 8:48 AM EST 03/19/2023 11:27 AM EST Alem De Anda MD LAB BLOOD ORDERABLES Final Result [facility] [address] [place] [phone] * HPV mRNA E6/E7 (09/08/2018 10:19 AM EDT) HPV mRNA E6/E7 Not Detected NOT DETECTED [facility] Comment: This test was performed using the APTIMA(R) HPV Assay ([employer] This assay detects E6/E7 viral messenger RNA (mRNA) from 14 high-risk HPV types (16,18,31,33,35,39,45,51, 52,56,58,59,66,68). For additional information please refer to: http://education.[employer]/faq/ZYO806o7 (This link is being provided for informational/ educational purposes only.) The analytical performance characteristics of this assay have been determined by [facility] [place], [place]. The modifications have not been cleared or approved by the FDA. This assay has been validated pursuant to the CLIA regulations and is used for clinical purposes. Test Performed by [facility], [address] [place] [address] Dave Judd M.D., Ph.D., Director of Laboratories , CLIA [id number] Please note: ??Effective 01/13/2016, HPV testing will be performed using [employer]'s APTIMA test which targets mRNA. Detecting mRNA instead of DNA, as in older methods, offers significant improvements in specificity. 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
== END 2024-08-15 10:40 | disposition home or self-care (01) ==
LOC: HO.US 10:39
PROVIDERS: PCP Internal Medicine; Visit Provider Advanced Practice Midwife
DX: N83.299 Other ovarian cyst, unspecified side (principal)
CPT/HCPCS: 76830; 76856

== ENCOUNTER → 2024-08-15 10:44 | Outpatient (BNV) | payer OTHER, SELFPAY | PROVIDERS: PCP Internal Medicine; Visit Provider Radiology Diagnostic Radiology | DX: N83.292 Other ovarian cyst, left side (principal) | CPT/HCPCS: 76830; 76856 ==

== ENCOUNTER 2024-09-14 12:42 | Outpatient (AMB) | payer OTHER, SELFPAY ==
--- NOTE | 2024-09-14 12:44 | MHC.OFFVIS ---
Vital Signs 09/14/24 12:45 Height 5 ft 3 in Weight 205 lb BMI 36.3 BP 132/72 Blood Pressure Location Lt brachial Position Sitting Intake Visit Reasons: Ultrasound Follow up/IUD Check Intake Note: pt has been bleeding since 08/13/24, just spotting today Derrick Hand Required: Yes Derrick Hand Name: Antonio Information Interpreted: non-clinical & clinical Allergies No Known Allergies Allergy (Verified 09/14/24 12:57) Medication List - Last Reconciled 09/14/24 by Michelle Shukla LPN amlodipine 5 mg PO DAILY artifi.tears(hypromellose)(PF) 0.3% 1 drp ophthalmic (eye) Q4-6H PRN ascorbate calcium (vitamin C) 500 mg PO DAILY cyclobenzaprine 10 mg PO TID PRN ferrous gluconate 324 mg PO Q OTHER DAY ibuprofen 600 mg PO TID losartan-hydrochlorothiazide 100-25 mg (Hyzaar) 1 tab PO DAILY Is last menstrual period known: Yes Last menstrual period: 08/13/24 Post menopausal: No Patient : No Do you need a note to return to daycare/school/sports/work: No HPI Comments Details: Patient is here today for a follow up pelvic ultrasound results and in the IUD checkup. She reports irregular bleeding after the initiation of the IUD placement, currently is improving. [facility] Medical History IUD (intrauterine device) in place Fibroid Complex ovarian cyst Abnormal uterine bleeding (AUB) Hypertension Anemia Obesity (BMI 30.0-34.9) Surgical History Hx of tubal ligation Hx of section Family History Mother History of breast cancer Hypertension Diabetes mellitus Social History Alcohol intake: never Female Reproductive History Menstrual Age of Menarche: 8 Date of last menstrual period: 08/13/24 control method: progestin IUCD Date of last pap smear: 03/21/24 History of abnormal pap smear: No Review of Systems Const All systems reviewed & are unremarkable except as noted in HPI and below Physical Exam Const General: cooperative, healthy appearing and no acute distress Orientation/consciousness: patient oriented x3 GI Inspection: Yes normal to inspection Palpation (GI): Soft to palpation and Other GI palpation findings present (Nontender) Rectal Exam - Female: visual inspection normal General: Yes bladder normal to palpation External Female Exam: normal appearance of the urethra Speculum Exam - Vagina: normal appearance of the vagina, normal palpation and normal vaginal discharge Speculum Exam - Cervix: normal appearance of the cervix, normal palpation and Other cervical findings present (IUD strings at the os) Bimanual exam- vagina & uterus: normal bimanual exam, normal palpation, uterine size normal, bladder normal to palpation, normal palpation, uterine shape normal and non-tender Bimanual Exam- Adnexa, other: normal adnexae Neuro General: patient oriented x3 Results Reviewed Results Reviewed: [address] [address] Ultrasound Report Signed Patient: Tessa Parnell MR#: [id number] : 1985 Acct:[id number] Age/Sex: 39 / F ADM Date: 08/15/24 Loc: HO.US Attending Dr: Marie Friedman CNM Ordering Physician: Marie Friedman CNM Date of Service: 08/15/24 Procedure(s): US pelvic and transvaginal Accession Number(s): [id number] cc: Alem Rubalcava MD; Marie Friedman CNM~ CLINICAL HISTORY: N83.299 - COMPLEX CYST Transabdominal and transvaginal pelvic ultrasound Limited left ovarian Doppler studies Comparison: None Findings: Uterus 11.5 x 3.8 x 5.9 cm. Endometrium 3 mm. IUD in proper position. No significant free fluid. 1 cm anterior fibroid noted. Right ovary is not identified. Left ovary 4.9 x 2.9 x 4.3 cm. 4.6 x 2.8 cm cyst with internal debris. Septation and wall thickening also noted. This is new compared to previous study. Recommend follow-up in 1-2 months. Arterial and venous color and spectral Doppler assessment of left ovary. There is normal flow to left ovary. Without evidence for ovarian torsion. Impression: Complex left ovarian cyst, recommend 1-2 month follow-up This document has been electronically signed by: Ayaan Mcgowan MD on 08/16/2024 20:18:02 Dictated By: Ayaan Mcgowan MD Signed By: <Electronically signed by Ayaan Mcogwan MD in OV> 08/16/242017 DD/ 17 TD/TT: 08/16/242017 Flooring Grader: Assessment & Plan Assessment & Plan (1) Complex ovarian cyst: Comment: Left side 4.6cm Code(s): N83.299 - Other ovarian cyst, unspecified side Category: Medical Plan: Counseled regarding findings of: Ultrasound findings left complex ovarian cyst. Complex ovarian cyst, which is often benign, and most resolve on their own overtime. Some develop into premalignant or malignant tumors. Limitations of testing for diagnostic purposes. Further monitoring and evaluation is recommended with US, possible CT, or MRI study. If persists, or is indicated (Ca-125, Carbohydrate Antigen 19-9, & Carcinoembryonic Antigen) labs will be ordered and referral to [facility] or general gynecology for MD care if indicated for possible surgical consult. Follow up in person for test results. Ultrasound ordered. Reviewed pelvic warnings and when to call for follow up care. All of her questions and concerns were addressed to the best of my ability and shared decision making. She is agreeable to the plan of care. This note is constructed using voice recognition software. While every effort has been made to ensure accuracy, operations and intelligence assistant errors may have been included. (2) IUD check up: Code(s): Z30.431 - Encounter for routine checking of intrauterine contraceptive device Plan IUD strings noted at os. Pelvic ultrasound confirm proper positioning. Instructed on string check. Advised to call if any heavy prolonged bleeding or other concerns with her IUD. We will be scheduled for a follow up pending her ultrasound appointment and has not annual scheduled in October 2024. The patient expressed understanding and agreement with the plan of care. All of her questions and concerns were addressed to the best of my ability. This note is constructed using voice recognition software. While every effort has been made to ensure accuracy, operations and intelligence assistant errors may have been included. Orders: Orders US pelvic and transvaginal Today N83.299 - Other ovarian cyst, unspecified side Coding Level of Care Code Est Pt Level 3 (65685) Diagnoses Complex ovarian cyst N83.299 IUD check up Z30.431
[2024-09-14 12:45] VITALS: BP 132/72; BMI 36.3
--- OUTSIDE RECORDS SUMMARY | 2024-09-14 13:22 | XMS_ITS | Clinical Summary ---
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 Essential hypertension 09/01/2022 Assessment & Plan [...] Encounters Date Type Department Care Team Description 08/29/2024 Orders Only [facility] PED[facility] [address] [place] [address] Kiersten Hogue 07/25/2024 Orders Only GENERIC EXTERNAL DATA DEPARTMENT Provider, Generic External Data from Last 3 Months Immunizations Immunization Administration Dates Next Due Hep B, adult [...] - 19+ 3-dose series) 06/18/2019 01/13/2019, 12/16/2018 COVID-19 Vaccine ( season) 2024 06/26/2022, 03/26/2021, 07/24/2020 SDOH Screening 02/05/2024 02/04/2023 Depression Screening 06/04/2024 06/04/2023, 06/04/19 24 Mammogram 09/12/2024 09/13/2023 Alcohol/Substance Use Screening 03/13/2025 03/13/2024 Diabetes: Hemoglobin A1C 03/13/2025 024, 03/19/2023, 08/14/2020 Tobacco Screening 03/20/2025 03/20/2024 Lipid Panel 03/19/2028 03/19/2023, 03/0 07/2021, 08/14/2020 DTaP/Tdap/Td Vaccines (2 - Td or Tdap) 12/16/2028 12/16/2018 Cervical Cancer Screening 03/20/2029 HPV/Cotest 03/20/2029 03/20/2024, 09/08/2018 Pap Smear 03/20/2029 03/20/2024 Zoster Vaccines (1 [...] patient's age to complete this topic Meningococcal B Vaccine Aged Out No l onger eligible based on patient's age to complete [...] Associated Diagnosis Comments US PELVIS TRANSVAGINAL Routine 8:18 PM EDT HEMATOXYLIN AND EOSIN STAIN Routine 07/25/2024 8:23 AM EDT HPV MRNA E6/E7 REFLEX TO HPV 16, 18/45 Routine 03/20/2024 12:00 AM EST PAP SMEAR Routine 03/20/2024 12:00 [...] 03/19/2023 8:48 AM EST Preventative health care from Last 3 Months or Most Recently Relevant to Health Maintenance Results * US Pelvis Transvaginal (08/16/2024 8:18 PM EDT) Anatomical Region Laterality Modality Pelvis Ultrasound 08/16/2024 8:18 PM EDT Narrative 08/16/2024 8:19 PM EDT ? [facility] ?[address] ?[place] [address] ? Ultrasound Report ? Signed ? Patient: Scott Elizalde,Tessa ?MR#: ?? [id number] ? : 1985 ?Acct:[id number] ? Age/Sex: 39 / F ?ADM Date: 08/15/24 ? Loc: HO.US ? Attending Dr: Marie Friedman CNM ? Ordering Physician: Marie Friedman CNM ?? Date of Service: 08/15/24 ?? Procedure(s): US pelvic and transvaginal ?? Accession Number(s): [id number] ? cc: Alem Rubalcava MD; Marie Friedman CNM ? CLINICAL HISTORY: N83.299 - COMPLEX CYST ? Transabdominal and transvaginal pelvic ultrasound ? Limited left ovarian Doppler studies ? Comparison: None ? Findings: ? Uterus 11.5 x 3.8 x 5.9 cm. Endometrium 3 mm. ?? IUD in proper position. ?? No significant free fluid. ?? 1 cm anterior fibroid noted. ? Right ovary is not identified. ?? Left ovary 4.9 x 2.9 x 4.3 cm. ?? 4.6 x 2.8 cm cyst with internal debris. ?? Septation and wall thickening also noted. ?? This is new compared to previous study. ?? Recommend follow-up in 1-2 months. ? Arterial and venous color and spectral Doppler assessment of left ovary. ?? There is normal flow to left ovary. Without evidence for ovarian torsion. ? Impression: ? Complex left ovarian cyst, recommend 1-2 month follow-up ? This document has been electronically signed by: Ayaan Mcgowan MD on ?? 08/16/2024 20:18:02 ? Dictated By: ?Ayaan Mcgowan MD ? Signed By: ?<Electronically signed by Ayaan Mcgowan MD in OV> ? 08/16/242017 ? DD/ 2018 ? TD/TT: 08/16/24 2018 ? Street Cleaning Equipment Operator: ? Procedure Note Donotuseinterpreter, Image - 08/16/[address] [address] Ultrasound Report Signed Patient: Serge Parnell#: [id number] : 1985Acct:[id number] Age/Sex: 39 / FADM Date: 08/15/24 Loc: HO.US Attending Dr: Marie Friedman CNM Ordering Physician: Marie Friedman CNM Date of Service: 08/15/24 Procedure(s): US pelvic and transvaginal Accession Number(s): [id number] cc: Alem Rubalcava MD; Marie Friedman CNM CLINICAL HISTORY: N83.299 - COMPLEX CYST Transabdominal and transvaginal pelvic ultrasound Limited left ovarian Doppler studies Comparison: None Findings: Uterus 11.5 x 3.8 x 5.9 cm. Endometrium 3 mm. IUD in proper position. No significant free fluid. 1 cm anterior fibroid noted. Right ovary is not identified. Left ovary 4.9 x 2.9 x 4.3 cm. 4.6 x 2.8 cm cyst with internal debris. Septation and wall thickening also noted. This is new compared to previous study. Recommend follow-up in 1-2 months. Arterial and venous color and spectral Doppler assessment of left ovary. There is normal flow to left ovary. Without evidence for ovarian torsion. Impression: Complex left ovarian cyst, recommend 1-2 month follow-up This document has been electronically signed by: Ayaan Mcgowan MD on 08/16/2024 20:18:02 Dictated By: Ayaan Mcgowan MD Signed By: <Electronically signed by Ayaan Mcgowan MD in OV> 08/16/242017 DD/ 17 TD/TT: 08/16/242017 Street Cleaning Equipment Operator: [facility] External Provider IMG US PROCEDURES Final Result * Hematoxylin and Eosin Stain (07/25/2024 8:23 AM EDT) 07/25/2024 8:23 AM EDT 07/25/2024 11:53 AM EDT Narrative [facility] - 07/26/2024 4:09 PM EDT ----- ------- Name: Tessa Parnell ?Age/Sex: 39/F ? : 1985 Unit#: [id number] ?? Attend Dr: Marie Friedman CNM ?Re07/25/24 ?Status: DEP REF ? Location: HO.LNP ?Disch: ? ----- ------- SPEC : [id number] ? RECD: 07/25/24-1152 ? STATUS: ??SOUT ? REQ NUM: [id number] ? FAISAL: 07/25/24 ? SUBM DR: Marie [...] Copies To: ?? Alem Rubalcava MD ?? [facility] ?? [address] ?? [place] [address] ?? [phone] ?? Marie Friedman CNM ?? [facility] ?? [address] ?? [place] [address] ?? [phone] ----- ------- Signed (signature on file) Cinthya Rain 07/26/24 1609 ? ----- ------- ? END OF REPORT ? Generic External Data Provider LAB BLOOD ORDERAB LES Final Result Performing Organization Address [facility] de Phone Number [facility] [address] [place] [phone] * HPV mRNA E6/E7 w/Reflex to HPV Genotypes 16, 18/45 (03/20/2024 12:00 AM EST) Historical Provider MD LAB CYTOLOGY ORDERABLES F inal Result Performing Organization Address [facility] de Phone Number [facility] [address] [place] [address] [phone] * Pap Smear (03/20/2024 12:00 AM EST) Swab 03/20/2024 03/21/2024 9:1 0 AM EST Narrative [facility] - 03/23/2024 1:46 PM EST ----- ------- Name: Tessa Parnell ?Age/Sex: 39/F ? : 1985 Unit#: [id number] ?? Attend Dr: Julissa De Anda ?Re03/20/24 ?Status: DEP REF ? Location: HO.LNP ?Disch: ? ----- ------- SPEC : [id number] ?RECD: 03/21/24 ? STATUS: ??SOUT ? REQ NUM: [id number] ? FAISAL: 03/20/24-0000 ? SUBM DR: Alem [...] MD LAB CYTOLOGY ORDERABL ES Final Result [facility] [address] [place] [address] [phone] * POCT HGB A1C (03/13/2024 2:39 PM EST) Hemoglobin A1C 5.8 4.0 - 6.0 % QC Hemp 4 [place] Lot # [id number] Lot# Expiration Date [id number] Blood 03/13/2024 2:39 PM EST us Charlette Ben De Anda MD POINT OF CARE TEST EN TER/EDIT ORDERABLES Final Result * BI Mammogram Screening Tomosynthesis Bilateral (09/13/2023 2:00 PM EDT) Anatomical Region Laterality Modality Breast Bilateral Mammography 09/13/2023 2:00 PM EDT Narrative 10/14/2023 2:42 PM EDT ? [facility] ? [address] ?[place] [address] ? Mammography Report ? Signed ? Patient: Chavezanna Elizalde,Tessa ?MR#: ?? [id number] ? : 1985 ?Acct:[id number] ? Age/Sex: 38 / F ?ADM Date: 09/13/23 ? Loc: HO.MAMMO ? Attending Dr: Alem De Anda MD ? Ordering Physician: Alem Rubalcava MD ?Results: ?? 1Negative ? Date of Service: 09/13/23 ?Follow Up: 1 Year From Orig ?? inal Mammogram ? Procedure(s): MM tomosynthesis screening BI ?? Accession Number(s): [id number] ? cc: Alem Rubalcava MD ? EXAMINATION: [...] 1438 ? DD/ 1400 ? TD/TT: ? Street Cleaning Equipment Operator: ? Procedure Note Antwan, Angie - 10/14/2023 [facility] [address] [place] [address] Dr. [place], [place] [address] Mammography Report Signed Patient: Tessa Parnell#: [id number] : 1985Acct:[id number] Age/Sex: 38 / FADM Date: 09/13/23 Loc: HO.MAMMO Attending Dr: Alem De Anda MD Ordering Physician: Alem Rubalcavaesults: 1Negative Date of Service: 09/13/23Follow Up: 1 Year From Orig inal Mammogram Procedure(s): MM tomosynthesis screening BI Accession Number(s): [id number] cc: Alem Rubalcava MD EXAMINATION: MM SCREENING [...] in OV> 10/14/23 1438 DD/ 1400 TD/TT: Street Cleaning Equipment Operator: us Alem De Anda MD IMG BI PROCEDURES Fin al Result * Hepatitis C Antibody with Reflex to HCV, RNA, Quantitative, Real-Time PCR (03/19/2023 8:48 AM EST) Hepatitis C Antibody Nonreactive Nonreactive [facility] Comment:Antibodies to HCV no t detected; does not exclude early acuteHCV infection. Blood Venous blood specimen / Unknown 03/19/2023 8:48 AM EST 03/19/2023 11:27 AM EST us Alem De Anda MD LAB BLOOD ORDERABLES Final Result [facility] [address] [place] [address] [phone] * HIV-1/2 Antigen and Antibodies, Fourth Generation, with Reflexes (03/19/2023 8:48 AM EST) HIV AB/AG Nonreactive Nonreactive [facility] Comment:HIV-1 p24 Ag and/or HIV-1/HIV-2 Ab not detected.A test result that is nonreactive does not exclude thepossibility of exposure to or infection with HIV-1 and/orHIV-2. Nonreactive results in this assay for individualswith prior exposure to HIV-1 and/or HIV-2 may be due toantigen and antibody levels that are below the limit ofdetection of this assay.The [employer] HIV Ag/Ab Combo assay result andsupplemental assay results should be interpreted inconjunction with the patient's clinical presentation,history and other laboratory results. If the results areinconsistent with clinical evidence, additional testing issuggested to confirm the result. Blood Venous blood specimen / Unknown 03/19/2023 8:48 AM EST 03/19/2023 11:27 AM EST us Alem De Anda MD LAB BLOOD ORDERABLES Final Result [facility] [address] [place] [phone] * (ABNORMAL) Lipid Panel, Standard (03/19/2023 8:48 AM EST) Triglycerides 77 <150 mg/dL [facility] Comment:Desirable Triglyceri de: less than 150 mg/dLBorderline High Triglyceride 150-199 mg/dLHigh Triglyceride: 200-499 mg/dLVery High Triglyceride: greater than or equal to 5OO mg/dL Cholesterol 146 <200 mg/dL [facility] Comment:Desirable Cholestero l: less than 200 mg/dLBorderline High Cholesterol: 200-239 mg/dLHigh Cholesterol: greater than 239 mg/dL LDL Cholesterol Calculated 100(H) <100 mg/dL [facility] Comment:Desirable LDL: less than 100 mg/dLNear Optimal/Above Optimal LDL: 110- 129 mg/dLBorderline High LDL: 130-159 mg/dLHigh LDL: 160-189 mg/dLVery High LDL: greater than or equal to 190 mg/dL HDL Cholesterol 31(L) >40 mg/dL [facility] Comment:Desirable HDL: great er than 40 mg/dL Note: This HDL assay may give artificially low results in patients with liver disease. Blood Venous blood specimen / Unknown 03/19/2023 8:48 AM EST 03/19/2023 11:27 AM EST us Alem De Anda MD LAB BLOOD ORDERABLES Final Result [facility] [address] [place] [phone] [phone] from Last 3 Months or Most Recently Relevant to Health Maintenance Insurance [facility] Care Teams Social Group Worker Relationship Specialty Start Date End Date Alem Rubalcava MD [address] [place] [phone] PCP - General Family Medicine 03/08/18
--- OUTSIDE RECORDS SUMMARY | 2024-09-14 13:22 | XMS_ITS | Encounter Summary ---
Author Organization [employer] Address [address] [facility] [address] [place] [address] Care Team Providers Care Engineering Technology Instructor Name Role Phone Alem Rubalcava MD Primary Care Provide r Reason for Visit * Reason Onset Date Comments Med Refill 04/16/2023 Encounter Details Date Type Department Care Team ([facility] st Contact Info) Description 04/16/2023 Refill [facility] [address] [place] [address] Alem Rubalcava MD [address] [place] [address] Essential hypertension Social History Tobacco Use Types Packs/Day Years Used Date Smoking Tobacco: Never Smokeless Tobacco: Never Housing Stability Answer Date Recorded What is your housing situation today? I have torres cantu 02/17/[address] you li [...] hypertension documented in this encounter Care Teams Engineering Technology Instructor Relationship Specialty Start Date End Date Alem Rubalcava MD [address] [place] [address] PCP - General Family Medicine 03/08/18 documented as of this encounter
--- OUTSIDE RECORDS SUMMARY | 2024-09-14 13:22 | XMS_ITS | Encounter Summary ---
Author Organization [employer] Address [address] [facility] [address] [place] [address] Care Team Providers Care Psychotherapist Name Role Phone Alem Rubalcava MD Primary Care Provide r Encounter Details Date Type Department Care Team (Late st Contact Info) Description 08/29/2024 Orders Only [facility] MED & PEDS [address] [place] [address] Kiersten Hogue Social History Tobacco Use Types Packs/Day Years Used Date Smoking Tobacco: Never Passive Smoke Exposure: Never Smokeless Tobacco: Never Alcohol Use Standard Drinks/Week Comments Never 0 [...] on file documented as of this encounter Procedures Procedure Name Priority Date/Time Associated Diagnosis Comments HPV MRNA E6/E7 REFLEX TO HPV 16, 18/45 Routine 03/20/2024 12:00 AM EST documented in this encounter Results * HPV mRNA E6/E7 w/Reflex to HPV Genotypes 16, 18/45 (03/20/2024 12:00 AM EST) us Historical Provider LAB CYTOLOGY ORDERABLES F inal Result [facility] [address] [place] [phone] documented in this encounter Visit Diagnoses Not on filedocumented in this encounter Additional Health Concerns Assessment Noted Time PHQ-9 Depression Total Score: 0 06/04/19 24 2:23 PM EST documented as of this encounter Care Teams Psychotherapist Relationship Specialty Start Date End Date Alem Rubalcava MD [address] [place] [address] PCP - General Family Medicine 03/08/18 documented as of this encounter
== END 2024-09-14 13:13 | disposition home or self-care (01) ==
LOC: HO.HWS 12:42
PROVIDERS: PCP Internal Medicine; Visit Provider Advanced Practice Midwife
DX: N83.299 Other ovarian cyst, unspecified side (principal); Z30.431 Encounter for routine checking of intrauterine contraceptive device
CPT/HCPCS: 99213

== ENCOUNTER → 2024-09-14 12:42 | Outpatient (BNVA) | payer OTHER, SELFPAY | PROVIDERS: PCP Internal Medicine; Visit Provider Advanced Practice Midwife | DX: Z30.431 Encounter for routine checking of intrauterine contraceptive device (principal); N83.299 Other ovarian cyst, unspecified side | CPT/HCPCS: 99212 ==

== ENCOUNTER 2025-04-02 08:04 | Outpatient (REF) | payer MEDICAID, SELFPAY ==
--- OUTSIDE RECORDS SUMMARY | 2025-04-02 08:13 | XMS_ITS | Clinical Summary ---
Author Organization [employer] Address [address] [place] [address] [address] [place] [address] Care Team Providers Care Process Description Writer Name Role Phone Alem Rubalcava MD Primary Care Provide r Allergies No known active allergies Medications * This document contains information received from the source organization and may not represent a complete record from that organization. amLODIPine (Norvasc) 5 MG tabletIndications :Essential hypertension Take 1 tablet (5 mg) by mouth Once per day. 90 tablet 1 4 Active naproxen (Naprosyn) 500 MG tablet Take 1 tablet (500 mg) by mouth if needed in the morning and at bedtime for mild pain. 30 tablet 1 5 11/17/19 26 Active chlorthalidone (Hygroton) 25 MG tabletIndications :Essential hypertension TAKE 1 TABLET BY MOUTH EVERY DAY 90 tablet 1 5 Active losartan (Cozaar) 100 MG tabletIndications :Essential hypertension TAKE 1 TABLET BY MOUTH EVERY DAY 90 tablet 1 5 Active Tirzepatide (Mounjaro) 2.5 MG/0.5ML solution auto-injectorIndi cations:New onset type 2 diabetes mellitus (HCC) Inject 2.5 mg under the skin 1 (one) time per week. 2 mL 2 5 Active metFORMIN XR (Glucophage-XR) 500 MG 24 hr tabletIndications :New onset type 2 diabetes mellitus (HCC) Take 1 tablet (500 mg) by mouth with evening meal. Do not crush, chew, or split. 30 tablet 11 5 02/23/20 26 Active ferrous gluconate (Fergon) 324 (38 Fe) MG tabletIndications :Iron deficiency anemia, unspecified iron deficiency anemia type Take 1 tablet (324 mg) by mouth every other day. 15 tablet 3 4 03/08/20 25 Active Problems Problem Noted Date Diagnosed Date Moderate episode of recurren t major depressive disorder (CMS/HCC) 03/08/2025 New onset type 2 diabetes mellitus 02/22/2025 Adjustment disorder with mixed anxiety and depre ssed mood 02/22/2025 Encounter for preventive care 03/20/2024 Encounter for screening for cervical cancer 03/03 Assessment & Plan (03/20/2024 4:28 PM EST): Patient will be contacted with results Tuberculosis screening 03/13/2024 Encounter for preventative adult health care exa mination 03/13/2024 Assessment & Plan (03/13/2024 12:08 PM EST): See HPI Metrorrhagia 11/16/2023 Other constipation 06/04/2023 Assessment & [...] her on iron supplements, I will put Support Associate referral Essential hypertension 09/01/2022 Assessment & Plan [...] Bilateral low back pain without sciatica 023 Resolved Problems Problem Noted Date Diagnosed Date Resolved Date Prediabetes 03/13/2024 02/22/2025 Assessment & Plan (03/13/2024 12:08 PM EST): Today extensive discussion was done about life style modifications I advise healthy diet (low calorie) and cardiovascular exercise Encounters * This document contains information received from the source organization and may not represent a complete record from that organization. Date Type Department Care Team Description 03/20/2025 Patient Outreach [facility] MEDICINE [address] [place] [phone] Alem Rubalcava MD Pre-visit Planning (SDOH screening completed on 02/22/2025) 02/23/2025 Telephone [facility] CHC MED & PEDS [address] [place], [place] [phone] Alem Rubalcava MD Prior Authorization ( PA: Elizabeth) 02/22/2025 10:00 AM EDT Office Visit [facility] MEDICINE [address] [place] [phone] Alem Rubalcava MD Essential hypertension; New onset type 2 diabetes mellitus (HCC); Breast cancer screening by mammogram; Adjustment disorder with mixed anxiety and depressed mood; Encounter for immunization 02/22/2025 Travel 02/21/2025 Telephone [facility] MEDICINE [address] [place] [phone] Alem Rubalcava MD Chart Prep 02/20/2025 Population Health Risk Score [facility] Department [address] [place] [address] [phone] Provider, Population Health Generic 02/16/2025 10:00 AM EDT Office Visit [facility] OPTOMETRY [address] [place], [place] [phone] Asif, Racheal, OD Presbyopia (Primary Dx) 01/31/2025 Refill [facility] MEDICINE [address] [place] [address] Alem Rubalcava MD Essential hypertension 01/15/2025 9:00 AM EDT Office Visit [facility] OPTOMETRY [address] [place], [place] [phone] Racheal Gold, OD Presbyopia (Primary Dx); Suspicious optic nerve cupping of both eyes 01/15/2025 Travel 01/11/2025 Telephone [facility] CHC MED & PEDS [address] [place] [address] Alem Rubalcava MD NOV RECALL from Last 3 Months Immunizations Immunization Administration Dates Next Due Hep B, adult 01/13/2019,12/16/2018 Influenza Injectable Quadriv alant Preservative Free IIV4 MDCK 02/04/2020 Influenza injectable quadriv alent IIV4 with preservative 03/08/2018 Influenza injectable quadrivalent preservative f ree 02/26/2023 Influenza, seasonal, injectable, preservative fr ee 02/22/2025,03/13/2024 Pfizer Covid-19 Vaccine 12+ Bivalent 06/26/2022 Tdap [...] Answer Date Recorded Patient Health Questionnaire-9 Score 12 03/08/2025 Patient Health Questionnaire-9 Score 12 03/08/2025 Last PHQ-9: Questionnaire Data Not on file 1 05/08/2024 Housing Stability Answer Date Recorded What is your housing situation today? I have torres pepe 02/22/[address] you li ve. Do you have problems with any of the following? None of the above 02/22/2025 Food Insecurity Answer Date Recorded Within the [...] Answer Date Recorded Patient Health Questionnaire-2 Score 6 03/08/2025 Internet Access Answer Date Recorded Internet Access [...] Sign Reading Time Taken Comments Blood Pressure 130/98 02/22/2025 10:12 AM EDT Pulse 98 02/22/2025 10:12 AM EDT Temperature 34.7 C (94.5 F) 02/22/2025 10:12 AM EDT Respiratory Rate 17 02/22/2025 10:1 2 AM EDT Oxygen Saturation 96% 02/22/2025 10: 12 AM EDT Inhaled Oxygen Concentration - - Weight 95.2 kg (209 lb 12.8 oz) 025 10:12 AM EDT Height 160 cm (5' 3 ) 02/22/2025 10:12 AM EDT Body Mass Index 37.16 02/22/2025 10:12 AM EDT Plan of Treatment Upcoming Encounters Date Type Department Care Team (Late st Contact Info) Description 04/02/2025 9:15 AM EST Office Visit [facility] MEDICINE [address] [place] [phone] Alem Rubalcava MD [address] [place] [address] 05/24/2025 1:00 PM EST Office Visit [facility] MEDICINE [address] [place] [address] [phone] Alem Rubalcava MD [address] [facility], [place] [phone] 06/05/2025 11:00 AM EST Nutrition [facility] DIABETES/NUTRITION [address] [place], [place] [phone] Marga Garibay [address] [place], [place] [phone] Health Maintenance Due Date Last Done Comments Disability Screening 1983 Diabetes: Foot Exam 1993 Family Planning (PISQ) 1998 HPV Vaccines (1 - 3-dose series) 1998 Diabetes: Urine Protein Screening 2002 Pneumococcal Vaccine: Pediatrics (0 to 5 Years) and At-Risk Patients (6 to 49) Years (1 of 2 - PCV) 2002 Hepatitis B Vaccines (3 of 3 - 19+ 3-dose series) 06/18/2019 01/13/2019, 12/16/2018 Lipid Panel 03/19/2024 03/19/2023, 03/0 07/2021, 08/14/2020 Mammogram 09/12/2024 09/13/2023 COVID-19 Vaccine ( season) 2025 06/26/2022, 03/26/2021, 07/24/2020 Diabetes: Hemoglobin A1C 08/23/2025 025, 03/13/2024, 03/19/2023, Additional history exists Depression Monitoring 09/05/2025 03/08/2025, 025 Alcohol/Substance Use Screening 02/22/2026 02/22/2025 SDOH Screening 02/22/2026 02/22/2025 Tobacco Screening 02/22/2026 02/22/2025 Eye Exam 01/15/2027 01/15/2025, 01/01, 01/15/2025, Additional history exists DTaP/Tdap/Td Vaccines (2 - Td or Tdap) 12/16/2028 12/16/2018 Cervical Cancer Screening 03/20/2029 HPV/Cotest 03/20/2029 03/20/2024, 09/08/2018 Pap Smear 03/20/2029 03/20/2024 Zoster Vaccines (1 of 2) 2033 RSV Patients and Patients Aged 60 years or older (1 - 1-dose 75+ series) 2058 HIV Screening Completed 03/19/2023, 08/14/2020 Hepatitis C Screening Completed 03/19/2023 Influenza Vaccine Completed 02/22/2025, , 02/26/2023, Additional history exists HIB Vaccines Aged Out [...] on patient's age to complete this topic Goals Goal Patient Goal Type Associated Problems Recent Progress Patient-Stated? Author Help patients manage their type 2 diabetes Care Plan Help patients manage their type 2 diabetes Catina Mojica Weekly blood pressure task Care Plan Weekly blood pressure task Catina Mojica Help patients manage their type 2 diabetes Care Plan Help patients manage their type 2 diabetes Catina Mojica Patient has chronic kidney disease Care Plan Patient has chronic kidney disease Catina Mojica Weekly blood pressure task Care Plan Weekly blood pressure task No Catina Pham Patient has chronic kidney disease Care Plan Patient has chronic kidney disease Catina Mojica Procedures Procedure Name Priority Date/Time Associated Diagnosis Comments POCT GLYCATED HEMOGLOBIN, TOTAL Routine 02/22/2025 10:22 AM EDT New onset type 2 diabetes mellitus (HCC) OCT, OPTIC NERVE - OU - BOTH EYES Routine 01/15/2025 12:08 PM EDT Suspicious optic nerve cupping of both eyes HPV MRNA E6/E7 REFLEX TO HPV 16, 18/45 Routine 03/20/2024 12:00 AM EST PAP SMEAR Routine 03/20/2024 12:00 AM EST Encounter for screening for cervical cancer BI MAMMOGRAM SCREENING TOMOSYNTHESIS BILATERAL Routine 09/13/2023 [...] Recently Relevant to Health Maintenance Results * (ABNORMAL) POCT Hgb A1c (02/22/2025 10:22 AM EDT) Hemoglobin A1C 6.5(A) 4.0 - 5.7 % QC Media Lot # [id number] Lot# Expiration Date Blood 02/22/2025 10:2 2 AM EDT us Alem De Anda MD POINT OF CARE TEST EN TER/EDIT ORDERABLES Final Result * OCT, Optic Nerve - OU - Both Eyes (01/15/2025 12:08 PM EDT) Narrative Racheal Gold, OD - 01/19/2025 3:48 PM EDT Images from the original result were not included. OCT OPTIC NERVE INTERPRETATION Optical Coherence Tomography Interpretation Report Test Details: Measurements: OD OS C/D Horizontal 0.73 0.74 C/D Vertical 0.68 0.71 Disc area 2.30 mm 2 2.31 mm 2 RNFL Average 123 microns 124 microns Test findings: OD: Thicker than average RNFL in nasal quadrant. Normal RNFL thickness in all other quadrants. OS: Thicker than average RNFL in superior quadrant. Normal RNFL thickness in all other quadrants. Impression and Plan: No suspicion for glaucoma at this time. Will monitor at her next exam. us Racheal Gold OD OPHTH TOMOGRAPHY Final Result * HPV mRNA E6/E7 w/Reflex to HPV Genotypes 16, 18/45 (03/20/2024 12:00 AM EST) us Historical Provider LAB CYTOLOGY ORDERABLES F inal Result [facility] [address] [place] [phone] * Pap Smear (03/20/2024 12:00 AM EST) Swab 03/20/2024 03/21/2024 9:1 0 AM EST Narrative [facility] - 03/23/2024 1:46 PM EST ----- ------- Name: Scott ElizaldeTessa Age/Sex: 39/F : 1985 Unit#: [id number] Attend Dr: Julissa De Anda Re03/20/24 Status: DEP REF Location: [facility] Disch: ----- ------- SPEC : [id number] RECD: 03/21/24 STATUS: JEFF SILVER NUM: [id number] FAISAL: 03/20/24-[address]: Alem Rubalcava MD ENTERED: 03/21/24 SP TYPE: Pap Smr OTHR DR: ORDERED: Pap Smear Interpretation Satisfactory for evaluation. Negative for intraepithelial lesion or malignancy. No endocervical cells seen. Scant cellularity. HPV High Risk: Negative HPV Genotyping 16: Negative HPV Genotyping 18: Negative Clinical Information LMP: 02/17/2024 Previous PAP test: Unknown date, WNL Material Received ThinPrep-Vaginal/Cervical ----- ------- Signed (signature on file) DAVID Lawrence (ASCP) 03/23/24 1346 ----- ------- END OF REPORT us Alem De Anda MD LAB CYTOLOGY ORDERABL ES Final Result [facility] [address] [place] [address] [phone] * BI Mammogram Screening Tomosynthesis Bilateral (09/13/2023 2:00 PM EDT) Anatomical Region Laterality Modality Breast Bilateral Mammography 09/13/2023 2:00 PM EDT Narrative 10/14/2023 2:42 PM EDT [facility] [address] [place] [address] Mammography Report Signed Patient: Tessa Parnell MR#: [id number] : 1985 Acct:[id number] Age/Sex: 38 / F ADM Date: 09/13/23 Loc: [facility] Attending Dr: Alem De Anda MD Ordering Physician: Alem Rubalcava MD Results: 1Negative Date of Service: 09/13/23 Follow Up: 1 Year From Orig inal Mammogram Procedure(s): MM tomosynthesis screening BI Accession Number(s): [id number] cc: Alem Rubalcava MD EXAMINATION: MM SCREENING [...] in OV> 10/14/23 1438 DD/ 1400 TD/TT: Administrative Office Assistant: Procedure Note Donotuseinterpreter, Image - 10/14/2023 [place] [facility] [address] [place] [address] Mammography Report Signed Patient: Tessa ParnellMR#: [id number] : 1985Acct:[id number] Age/Sex: 38 / FADM Date: 09/13/23 Loc: [facility] Attending Dr: Alem De Anda MD Ordering Physician: Alem Rubalcavaesults: 1Negative Date of Service: 09/13/23Follow Up: 1 Year From Orig inal Mammogram Procedure(s): MM tomosynthesis screening BI Accession Number(s): [id number] cc: Alem Rubalcava MD EXAMINATION: MM SCREENING [...] in OV> 10/14/23 1438 DD/ 1400 TD/TT: Administrative Office Assistant: us Alem De Anda MD IMG BI PROCEDURES Fin al Result * Hepatitis C Antibody with Reflex to HCV, RNA, Quantitative, Real-Time PCR (03/19/2023 8:48 AM EST) Hepatitis C Antibody Nonreactive Nonreactive [facility] Comment:Antibodies to HCV no t detected; does not exclude early acuteHCV infection. Blood Venous blood specimen / Unknown 03/19/2023 8:48 AM EST 03/19/2023 11:27 AM EST us Alem De Anda MD LAB BLOOD ORDERABLES Final Result [facility] [address] [place] [phone] * HIV-1/2 Antigen and Antibodies, Fourth Generation, with Reflexes (03/19/2023 8:48 AM EST) HIV AB/AG Nonreactive Nonreactive [facility] Comment:HIV-1 p24 Ag and/or HIV-1/HIV-2 Ab not detected.A test result that is nonreactive does not exclude thepossibility of exposure to or infection with HIV-1 and/orHIV-2. Nonreactive results in this assay for individualswith prior exposure to HIV-1 and/or HIV-2 may be due toantigen and antibody levels that are below the limit ofdetection of this assay.The [employer] HIV Ag/Ab Combo assay result andsupplemental assay results should be interpreted inconjunction with the patient's clinical presentation,history and other laboratory results. If the results areinconsistent with clinical evidence, additional testing issuggested to confirm the result. Blood Venous blood specimen / Unknown 03/19/2023 8:48 AM EST 03/19/2023 11:27 AM EST us Alem De Anda MD LAB BLOOD ORDERABLES Final Result [facility] [address] [place] [address] [phone] * (ABNORMAL) Lipid Panel, Standard (03/19/2023 8:48 AM EST) Pathologist [facility] Triglycerides 77 <150 mg/dL [facility] Comment:Desirable Triglyceri de: less than 150 mg/dLBorderline High Triglyceride 150-199 mg/dLHigh Triglyceride: 200-499 mg/dLVery High Triglyceride: greater than or equal to 5OO mg/dL Cholesterol 146 <200 mg/dL [facility] Comment:Desirable Cholestero l: less than 200 mg/dLBorderline High Cholesterol: 200-239 mg/dLHigh Cholesterol: greater than 239 mg/dL LDL Cholesterol Calculated 100(H) <100 mg/dL [facility] Comment:Desirable LDL: less than 100 mg/dLNear Optimal/Above Optimal LDL: 110- 129 mg/dLBorderline High LDL: 130-159 mg/dLHigh LDL: 160-189 mg/dLVery High LDL: greater than or equal to 190 mg/dL HDL Cholesterol 31(L) >40 mg/dL [facility] Comment:Desirable HDL: great er than 40 mg/dL Note: This HDL assay may give artificially low results in patients with liver disease. Blood Venous blood specimen / Unknown 03/19/2023 8:48 AM EST 03/19/2023 11:27 AM EST Alem De Anda MD LAB BLOOD ORDERABLES Final Result [facility] [address] [place] [phone] from Last 3 Months or Most Recently Relevant to Health Maintenance Additional Health Concerns Active Problems Noted Date Diagnosed Date Help patients manage their type 2 diabetes 03/20 Weekly blood pressure task 03/20/2025 Help patients manage their type 2 diabetes 03/20 Patient has chronic kidney disease 03/20/2025 Weekly blood pressure task 03/20/2025 Patient has chronic kidney disease 03/20/2025 Insurance [facility] C3 Care Teams Process Description Writer Relationship Specialty Start Date End Date Alem Rubalcava MD [address] [place] [address] PCP - General Family Medicine 03/08/18
--- OUTSIDE RECORDS SUMMARY | 2025-04-02 08:13 | XMS_ITS | Encounter Summary ---
Author Organization [employer] Address [address] [place] [address] [address] [place] [address] Care Team Providers Care Intake Rn Name Role Phone Alem Rubalcava MD Primary Care Provide r Reason for Visit * Reason Onset Date Comments Med Refill 04/16/2023 Encounter Details Date Type Department Care Team ([facility] st Contact Info) Description 04/16/2023 Refill [facility] MEDICINE [address] [place] [address] Alem Rubalcava MD [address] [place] [address] Essential hypertension Social History Tobacco Use Types [...] as of this encounter Plan of Treatment Upcoming Encounters Date Type Department Care Team (Late st Contact Info) Description 04/02/2025 9:15 AM EST Office Visit [facility] MEDICINE [address] [place] [phone] Alem Rubalcava MD [address] [place] [phone] 05/24/2025 1:00 PM EST Office Visit [facility] MEDICINE [address] [place] [phone] Alem Rubalcava MD [address] [place] [phone] 06/05/2025 11:00 AM EST Nutrition [facility] DIABETES/NUTRITION [address] [place] [phone] [place] [phone] documented as of this encounter Visit Diagnoses Diagnosis Essential hypertension Unspecified essential hypertension documented in this encounter Care Teams Intake Rn Relationship Specialty Start Date End Date Alem Rubalcava MD [address] [place] [phone] PCP - General Family Medicine 03/08/18 documented as of this encounter
--- OUTSIDE RECORDS SUMMARY | 2025-04-02 08:13 | XMS_ITS | Encounter Summary ---
Author Organization [employer] Address [address] [facility] [facility] [address] [place] [address] Care Team Providers Care Rfid Manager Name Role Phone Alem Rubalcava MD Primary Care Provide r Encounter Details Date Type Department Care Team ([facility] st Contact Info) Description 08/29/2024 Orders Only [facility] CHC MED & PEDS [address] [place] [address] Kiersten Hogue Social History Tobacco Use Types [...] 9:15 AM EST Office Visit [facility] MEDICINE [address] [place] [phone] Alem Rubalcava MD [address] [place] [phone] 05/24/2025 1:00 PM EST Office Visit [facility] MEDICINE [address] [place] [phone] Alem Rubalcava MD [address] [place] [phone] 06/05/2025 11:00 AM EST Nutrition [facility] DIABETES/NUTRITION [address] [place] [phone] [place] [address] documented as of this encounter Procedures Procedure Name Priority Date/Time Associated Diagnosis Comments HPV MRNA E6/E7 REFLEX TO HPV 16, 18/45 Routine 03/20/2024 12:00 AM EST documented in this encounter Results * HPV mRNA E6/E7 w/Reflex to HPV Genotypes 16, 18/45 (03/20/2024 12:00 AM EST) us Historical Provider LAB CYTOLOGY ORDERABLES F inal Result [facility] [address] [place] [phone] documented in this encounter Visit Diagnoses Not on filedocumented in this encounter Additional Health Concerns Assessment Noted Time PHQ-9 Depression Total Score: 0 06/04/19 24 2:23 PM EST documented as of this encounter Care Teams Rfid Manager Relationship Specialty Start Date End Date Alem Rubalcava MD [address] [place] [address] PCP - General Family Medicine 03/08/18 documented as of this encounter
[2025-04-02 12:00] LABS: Microalbum/Creatinine Ratio Ur 6.4 ug/mg cr (<30)
[2025-04-02 13:10] LABS: Alanine Aminotransferase 12 U/L (0-31); Albumin Level 4.5 g/dL (3.5-5.0); Alkaline Phosphatase 39 U/L (39-117); Anion Gap 12 (12-20); Aspartate Amino Transferase 16 U/L (5-31); Blood Urea Nitrogen 14 mg/dL (9-16); Calcium 9.6 mg/dL (8.4-10.2); Carbon Dioxide 29 mmol/L (22-29); Chloride 102 mmol/L (96-108); Cholesterol 160 mg/dL (<200); Estimated Glomerular Filt Rate > 60; HDL Cholesterol 35 mg/dL (>40); Potassium 2.9 mmol/L (3.3-5.1); Sodium 140 mmol/L (135-145); Total Protein 8.2 g/dL (6.5-8.0); Triglycerides 77 mg/dL (<150)
== END 2025-04-02 08:05 | disposition home or self-care (01) ==
LOC: HO.HHCL 08:04
PROVIDERS: PCP Internal Medicine; Visit Provider Internal Medicine
DX: E11.9 Type 2 diabetes mellitus without complications (principal)
CPT/HCPCS: 36415; 80053; 80061; 82043; 82570

== ENCOUNTER 2025-04-16 11:06 | Outpatient (REF) | payer MEDICAID, SELFPAY ==
[2025-04-16 14:15] LABS: Alanine Aminotransferase 14 U/L (0-31); Albumin Level 4.4 g/dL (3.5-5.0); Alkaline Phosphatase 43 U/L (39-117); Anion Gap 9 (12-20); Aspartate Amino Transferase 20 U/L (5-31); Blood Urea Nitrogen 16 mg/dL (9-16); Calcium 9.4 mg/dL (8.4-10.2); Carbon Dioxide 25 mmol/L (22-29); Chloride 110 mmol/L (96-108); Cholesterol 152 mg/dL (<200); Estimated Glomerular Filt Rate > 60; HDL Cholesterol 32 mg/dL (>40); Potassium 4.3 mmol/L (3.3-5.1); Sodium 140 mmol/L (135-145); Total Protein 8.1 g/dL (6.5-8.0); Triglycerides 78 mg/dL (<150)
[2025-04-16 14:17] LABS: Microalbum/Creatinine Ratio Ur 28.0 ug/mg cr (<30)
[2025-04-16 14:28] LABS: Hematocrit 41.8 % (37.0-47.0); Hemoglobin 13.0 g/dl (12.0-16.0); Imm Gran Abs Auto 0.01 X10*3/uL (0.00-0.03); Imm Gran Pct Auto 0.1 % (0.0-0.4); Lymphocytes Absolute Auto 1.3 X10*3/uL (1.2-4.9); MANUAL DIFF FLAG SCAN; Mean Corpuscular HGB Conc 31.1 g/dl (31.0-35.0); Mean Corpuscular Hemoglobin 24.3 pg (27.0-33.0); Mean Corpuscular Volume 78.0 fL (80.0-98.0); NRBC Abs Auto 0.000 X10*3/uL (0.0-0.012); NRBC Pct Auto 0.0 /100WBC (0.0-0.2); PLT CLUMP 1; Red Blood Count 5.36 X10*6/uL (4.20-5.50); SCAN SMEAR FLAG 1
[2025-04-16 14:48] LABS: Platelet Count 240 X10*3/uL (160-400); White Blood Count 7.8 X10*3/uL (4.8-10.8)
== END 2025-04-16 11:07 | disposition home or self-care (01) ==
LOC: HO.HHCL 11:06
PROVIDERS: PCP Internal Medicine; Visit Provider Internal Medicine
DX: E11.9 Type 2 diabetes mellitus without complications (principal)
CPT/HCPCS: 36415; 80053; 80061; 82043; 82306; 82570; 84443; 85025

== ENCOUNTER 2025-04-24 08:45 | Outpatient (AMB) | payer MEDICAID, SELFPAY ==
--- NOTE | 2025-04-24 09:02 | A.OFFVIS_ITS ---
Intake Visit Reasons: Type 2 diabetes mellitus without complications Intake Note: jhony is a 40 year old female who presents today as a new patient fir a diabetic foot exam.last A1C- unknown : Patient reports glucose 97 as of this morning feet feeling numbness and tingling Demi Chef Required: Yes Demi Chef Services: Demi Chef Present Demi Chef Name: [id number] Allergies No Known Allergies Allergy (Verified 09/14/24 12:57) HPI HPI Type 2 diabetes mellitus without complications: Details: The patient is a 40 year old female presenting for initial diabetic foot evaluation and toe nail discoloration. She does not know her hg a1c however she states her FBS at home was in the 90s today. She does endorse some symptoms of numbness and tingling to her feet. The patient also reports that after removing nail vietnamese, she noticed the nail of her left great toe was falling off and had a greenish discoloration. She denies any injury to the nail. [facility] Medical History IUD (intrauterine device) in place Fibroid Complex ovarian cyst Abnormal uterine bleeding (AUB) Hypertension Anemia Obesity (BMI 30.0-34.9) Surgical History Hx of tubal ligation Hx of section Family History Mother History of breast cancer Hypertension Diabetes mellitus Social History Alcohol intake: never Female Reproductive History Menstrual Age of Menarche: 8 Review of Systems Const All systems reviewed & are unremarkable except as noted in HPI and below Physical Exam Extrem Other: *Bilateral Lower Extremity Focused Diabetic Foot Exam Vascular: DP/PT 2/4, CFT<3s to digits, TG warm to cool, no pedal edema, pedal hair present Derm: Skin: 1 - left hallux nail with distal lateral onycholysis; yellow-white discoloration, thickened dystrophic and brittle distal nail plate. 2 - right hallux nail with mild yellow-white discoloration on the distal aspect. Neuro: [place]-bridger monofilament (10g) test 9/10 intact to right foot, 9/10 intact to left foot. Msk: Deformities: No evidence of hammertoes, bunions, Charcot changes, or other structural abnormalities. Muscle strength: 5/5 in all muscle groups. Gait: Normal, no antalgic or steppage gait observed. Footwear Assessment: Shoes inspected; appropriate fit, no excessive wear, or foreign objects noted. Assessment & Plan Assessment & Plan (1) Tinea unguium: Code(s): B35.1 - Tinea unguium Category: Medical Plan: * Nail biopsy performed of bilateral hallux nail. * Discussed treatment options including topical treatment versus oral antifungal medications. * Rx Ciclopirox (2) Diabetes mellitus with peripheral autonomic neuropathy: Code(s): E11.43 - Type 2 diabetes mellitus with diabetic autonomic (poly)neuropathy Category: Medical Qualifiers: Diabetes mellitus type: type 2 Diabetes mellitus intermediate project manager insulin use: without intermediate project manager use Qualified Code(s): E11.43 - Type 2 diabetes mellitus with diabetic autonomic (poly)neuropathy Plan: * The patient was counseled that preventing progression is best achieved by maintaining strict glycemic control, with a target A1C of less than 6.5. * Discussed concerns and risks of infection with peripheral neuropathy Medications: New 2 ciclopirox 8% Apply to fungal toenails daily. Remove build-up at the end of the week. 1 appl topical BEDTIME 6.6 mL 3RF fungal nails 3 months B35.1 - Tinea unguium Coding Level of Care Code New Pt Level 4 (80225) Diagnoses Tinea unguium B35.1 Type 2 diabetes mellitus with diabetic autonomic neuropathy, without long-term current use of insulin E11.43 Diabetes mellitus type: type 2 Diabetes mellitus intermediate project manager insulin use: without intermediate project manager use Time Spent (min) 35
--- OUTSIDE RECORDS SUMMARY | 2025-04-24 09:03 | XMS_ITS | Encounter Summary ---
Author Organization [employer] Address [address] [facility] [place] [address] [place] [address] Care Team Providers Care Tube Closing Machine Operator Name Role Phone Alem Rubalcava MD Primary Care Provide r Encounter Details Date Type Department Care Team ([facility] st Contact Info) Description 08/29/2024 Orders Only [facility] CHC MED & PEDS [address] [place] [address] Kiersten Hogue Social History Tobacco Use Types [...] Care Team (Late st Contact Info) Description 05/24/2025 1:00 PM EST Office Visit [facility] MEDICINE [address] [place] [address] Alem Rubalcava MD [address] [place] [address] 06/05/2025 11:00 AM EST Nutrition [facility] DIABETES/NUTRITION [address] [place] [address] [place] [address] documented as of this encounter Procedures Procedure Name Priority Date/Time Associated Diagnosis Comments HPV MRNA E6/E7 REFLEX TO HPV 16, 18/45 Routine 03/20/2024 12:00 AM EST documented in this encounter Results * HPV mRNA E6/E7 w/Reflex to HPV Genotypes 16, 18/45 (03/20/2024 12:00 AM EST) us Historical Provider LAB CYTOLOGY ORDERABLES F inal Result [facility] [address] [place] [address] [phone] documented in this encounter Visit Diagnoses Not on filedocumented in this encounter Additional Health Concerns Assessment Noted Time PHQ-9 Depression Total Score: 0 06/04/19 24 2:23 PM EST documented as of this encounter Care Teams Tube Closing Machine Operator Relationship Specialty Start Date End Date Alem Rubalcava MD [address] [place] [address] PCP - General Family Medicine 03/08/18 documented as of this encounter
--- OUTSIDE RECORDS SUMMARY | 2025-04-24 09:03 | XMS_ITS | Clinical Summary ---
Author Organization [employer] Address [address] [place] [address] [address] [place] [address] Care Team Providers Care Change Management Administrator Name Role Phone Alem Rubalcava MD Primary Care Provide r Allergies No known active allergies Medications * This document contains information received from the source organization and may not represent a complete record from that organization. naproxen (Naprosyn) 500 MG tablet Take 1 tablet (500 mg) by mouth if needed in the morning and at bedtime for mild pain. 30 tablet 1 11/17/19 25 026 Active losartan (Cozaar) 100 MG tabletIndication s:Essential hypertension TAKE 1 TABLET BY MOUTH EVERY DAY 90 tablet 1 02/01/20 25 Active metFORMIN XR (Glucophage-XR) 500 MG 24 hr tabletIndication s:New onset type 2 diabetes mellitus (HCC) Take 1 tablet (500 mg) by mouth with evening meal. Do not crush, chew, or split. 30 tablet 11 02/23/20 25 026 Active Tirzepatide (Mounjaro) 5 MG/0.5ML solution auto-injectorInd ications:Type 2 diabetes mellitus without complication, without long-term current use of insulin (HCC) Inject 5 mg under the skin 1 (one) time per week. 2 mL 04/02/20 25 Active ciclopirox (Penlac) 8 % solutionIndicati ons:Onychomycosi s Apply topically at bedtime. 6 mL 5 12:48 PM EST 04/02/20 25 Active amLODIPine (Norvasc) 10 MG tabletIndication s:Essential hypertension Take 1 tablet (10 mg) by mouth Once per day. 30 tablet 11 5 4:32 PM EST 04/02/20 25 026 Active amLODIPine (Norvasc) 5 MG tabletIndication s:Essential hypertension Take 1 tablet (5 mg) by mouth Once per day. 90 tablet 1 03/20/20 24 025 Discontinued chlorthalidone (Hygroton) 25 MG tabletIndication s:Essential hypertension TAKE 1 TABLET BY MOUTH EVERY DAY 90 tablet 1 02/01/20 25 025 Discontinued Tirzepatide (Mounjaro) 2.5 MG/0.5ML solution auto-injectorInd ications:New onset type 2 diabetes mellitus (HCC) Inject 2.5 mg under the skin 1 (one) time per week. 2 mL 2 02/23/20 25 025 Discontinued Tirzepatide (Mounjaro) 5 MG/0.5ML solution auto-injectorInd ications:Type 2 diabetes mellitus without complication, without long-term current use of insulin ([facility]) Inject 5 mg under the skin 1 (one) time per week. 2 mL 2 04/02/20 25 025 Discontinued potassium chloride CR (Klor-Con M20) 20 MEQ ER tabletIndication s:Hypokalemia Take 1 tablet (20 mEq) by mouth 3 times daily for 5 days. Do not crush or chew. 15 tablet 5 4:32 PM EST 04/02/20 25 025 Active Problems Problem Noted Date Diagnosed Date Type 2 diabetes mellitus wit hout complication, without long-term current use of insulin 04/02/2025 Onychomycosis 04/02/2025 Moderate episode of recurren t major depressive disorder (CMS/HCC) 03/08/2025 New onset type 2 diabetes mellitus 02/22/2025 Adjustment disorder with mixed anxiety and depre ssed mood 02/22/2025 Encounter for preventive care 03/20/2024 Assessment & Plan (04/02/2025 11:42 AM EST): See HPI Encounter for screening for cervical cancer 03/03 [...] her on iron supplements, I will put Scale Reclamation Tender referral Essential hypertension 09/01/2022 Assessment & Plan (04/02/2025 11:41 AM EST): - Aerobic exercise to reduce BP. Initial [...] consulting health care provider Assessment & Plan (03/20/2024 4:27 PM EST): [...] organization. Date Type Department Care Team Description 04/16/2025 Orders Only [address] [address] Alem Rubalcava MD 04/02/2025 9:15 AM EST Office Visit [address] [address] Alem Rubalcava MD Encounter for preventive care (Primary Dx); Type 2 diabetes mellitus without complication, without long-term current use of insulin (HCC); Essential hypertension; Onychomycosis; Encounter for immunization 04/02/2025 Orders Only [address] [address] Alem Rubalcava MD Hypokalemia (Primary Dx) 04/02/2025 Orders Only [address] [address] Alem Rubalcava MD Essential hypertension (Primary Dx); Hypokalemia 04/02/2025 Telephone [facility] [address] [place] [address] Alem Rubalcava MD critical lab 04/02/2025 Travel 03/20/2025 Patient Outreach [address] [address] Alem Rubalcava MD Pre-visit Planning (SDOH screening completed on 02/22/2025) 02/23/2025 Telephone [facility] [address] [place] [address] Alem Rubalcava MD Prior Authorization ( PA: Elizabeth) 02/22/2025 10:00 AM EDT Office Visit [address] [address] Alem Rubalcava MD Essential hypertension; New onset type 2 diabetes mellitus (HCC); Breast cancer screening by mammogram; Adjustment disorder with mixed anxiety and depressed mood; Encounter for immunization 02/22/2025 Travel 02/21/2025 Telephone [facility] [address] [place], [place] [phone] Alem Rubalcava MD Chart Prep 02/20/2025 Population Health Risk Score [facility] ([facility]) Department [address] [phone] Provider, Population Health Generic 02/16/2025 10:00 AM EDT Office Visit [facility] [address] [place], [place] [phone] Asif, Megan, OD Presbyopia (Primary Dx) 01/31/2025 Refill [facility] [address] [place] [address] Alem Rubalcava MD Essential hypertension from Last 3 Months Immunizations Immunization Administration Dates Next Due Hep B, adult 01/13/2019,12/16/2018 Influenza Injectable Quadriv alant Preservative Free IIV4 MDCK 02/04/2020 Influenza injectable quadriv alent IIV4 with preservative 03/08/2018 Influenza injectable quadrivalent preservative f ree 02/26/2023 Influenza, seasonal, injectable, preservative fr ee 02/22/2025,03/13/2024 Pfizer Covid-19 Vaccine 12+ Bivalent 06/26/2022 Pneumococcal Conjugate PCV 20 04/02/2025 Tdap 12/16/2018 Family History Medical History Relation [...] housing situation today? I have torres cantu 02/22/[address] you li [...] Sign Reading Time Taken Comments Blood Pressure 122/78 04/02/2025 9:10 AM EST Pulse 85 04/02/2025 9:10 AM EST Temperature 36.5 C (97.7 F) 04/02/2025 9:10 AM EST Respiratory Rate 17 04/02/2025 9:10 AM EST Oxygen Saturation 96% 04/02/2025 9:10 AM EST Inhaled Oxygen Concentration - - Weight 92.5 kg (204 lb) 04/02/2025 9:10 AM EST Height 160 cm (5' 3 ) 04/02/2025 9:10 AM EST Body Mass Index 36.14 04/02/2025 9:10 AM EST Plan of Treatment Upcoming Encounters Date Type Department Care Team (Late st Contact Info) Description 05/24/2025 1:00 PM EST Office Visit [facility] [address] [place], [place] [phone] Alem Rubalcava MD [address] [place], [place] [phone] 06/05/2025 11:00 AM EST Nutrition [facility] [address] [place], [place] [phone] Marga Garibay [address] [place], [place] [phone] Health Maintenance Due Date Last Done Comments Disability Screening 1985 Diabetes: Foot Exam 1993 Family Planning (PISQ) 1998 HPV Vaccines (1 - 3-dose series) 1998 Hepatitis B Vaccines (3 of 3 - 19+ 3-dose series) 06/18/2019 01/13/2019, 12/16/2018 Mammogram 09/12/2024 09/13/2023 COVID-19 Vaccine ( season) 2025 06/26/2022, 03/26/2021, 07/24/2020 Depression Monitoring 09/05/2025 03/08/2025, 025 Diabetes: Hemoglobin A1C 10/01/2025 025, 02/22/2025, 03/13/2024, Additional history exists Alcohol/Substance Use Screening 02/22/2026 02/22/2025 SDOH Screening 02/22/2026 02/22/2025 Tobacco Screening 04/02/2026 04/02/2025 Diabetes: Urine Protein Screening 04/16/2026 04/16/2025, 04/02/2025 Lipid Panel 04/16/2026 04/16/2025, 12/05/2024, 03/19/2023, Additional history exists Eye Exam 01/15/2027 01/15/2025, 01/01, 01/15/2025, Additional [...] Completed 02/22/2025, , 02/26/2023, Additional history exists Pneumococcal Vaccine: Pediatrics (0 to 5 Years) and At-Risk Patients (6 to 49) Years Completed 04/02/2025 HIB Vaccines Aged Out No longer eligi [...] Weekly blood pressure task No Catina Pham Help patients manage their type 2 diabetes [...] Care Plan Weekly blood pressure task No Amy Shoemaker MA Weekly blood pressure task Care Plan Weekly blood pressure task No Amy Shoemaker MA Patient has chronic kidney disease Care Plan Patient has chronic kidney disease No Amy Shoemaker MA Patient has chronic kidney disease Care Plan Patient has chronic kidney disease No Amy Shoemaker MA Weekly blood pressure task Care Plan Weekly blood pressure task No Olga Chavarria RN Weekly blood pressure task Care Plan Weekly blood pressure task No Olga Chavarria RN Patient has chronic kidney disease Care Plan Patient has chronic kidney disease No Olga Chavarria RN Patient has chronic kidney disease Care Plan Patient has chronic kidney disease No Olga Chavarria RN Weekly blood pressure task Care Plan Weekly blood pressure task No Alem Rubalcava MD Weekly blood pressure task Care Plan Weekly blood pressure task No Alem Rubalcava MD Patient has chronic kidney disease Care Plan Patient has chronic kidney disease No Alem Rubalcava MD Patient has chronic kidney disease Care Plan Patient has chronic kidney disease No Alem Rubalcava MD Weekly blood pressure task Care Plan Weekly blood pressure task No Alem Rubalcava MD Weekly blood pressure task Care Plan Weekly blood pressure task No Alem Rubalcava MD Patient has chronic kidney disease Care Plan Patient has chronic kidney disease No Alem Rubalcava MD Patient has chronic kidney disease Care Plan Patient has chronic kidney disease No Alem Rubalcava MD Weekly blood pressure task Care Plan Weekly blood pressure task No Kirsten Bucio Weekly blood pressure task Care Plan Weekly blood pressure task No Kirsten Bucio Patient has chronic kidney disease Care Plan Patient has chronic kidney disease No Kirsten Bucio Patient has chronic kidney disease Care Plan Patient has chronic kidney disease No Kirsten Bucio Procedures Procedure Name Priority Date/Time Associated Diagnosis Comments SLIDE REVIEW Routine 04/16/2025 11:12 AM EST ALBUMIN, RANDOM URINE W/CREATININE Routine 04/16/2025 11:12 AM EST Type 2 diabetes mellitus without complication, without long-term current use of insulin (HCC) TSH W/REFLEX TO FT4 Routine 04/16/2025 1 1:12 AM EST Type 2 diabetes mellitus without complication, without long-term current use of insulin (HCC) VITAMIN D,25-OH,TOTAL,IA Routine 04/16/2025 11:12 AM EST Type 2 diabetes mellitus without complication, without long-term current use of insulin (HCC) LIPID PANEL, STANDARD Routine 04/16/2025 11:12 AM EST Type 2 diabetes mellitus without complication, without long-term current use of insulin (HCC) COMPREHENSIVE METABOLIC PANEL Routine 04/16/2025 11:12 AM EST Type 2 diabetes mellitus without complication, without long-term current use of insulin (HCC) CBC WITH AUTO DIFFERENTIAL Routine 04/16/2025 11:12 AM EST Type 2 diabetes mellitus without complication, without long-term current use of insulin (HCC) POCT GLYCATED HEMOGLOBIN, TOTAL Routine 04/02/2025 9:23 AM EST Type 2 diabetes mellitus without complication, without long-term current use of insulin (HCC) POCT GLUCOSE (CPT-54750) Routine 04/02/2025 9:23 AM EST Type 2 diabetes mellitus without complication, without long-term current use of insulin (HCC) COMPREHENSIVE METABOLIC PANEL Routine 04/02/2025 8:17 AM EST New onset type 2 diabetes mellitus (HCC) ALBUMIN, RANDOM URINE W/CREATININE Routine 04/02/2025 8:17 AM EST New onset type 2 diabetes mellitus (HCC) LIPID PANEL, STANDARD Routine 04/02/2025 8:17 AM EST New onset type 2 diabetes mellitus (HCC) POCT GLYCATED HEMOGLOBIN, TOTAL Routine 02/22/2025 10:22 AM EDT New onset type 2 diabetes mellitus (HCC) HPV MRNA E6/E7 REFLEX TO HPV 16, [...] Recently Relevant to Health Maintenance Results * Slide Review (04/16/2025 11:12 AM EST) Slide Review VERIFIED [facility] 04/16/2025 11:1 2 AM EST 04/16/2025 1:40 PM EST us Alem De Anda MD LAB BLOOD ORDERABLES Final Result [facility] [address] [place] [phone] * (ABNORMAL) Vitamin D, 25-Hydroxy, Total, Immunoassay (04/16/2025 11:12 AM EST) Vitamin D 25-OH Total 22.2(L) >30 ng/mL [facility] Comment: Health Based Reference Values*< 20 ng/mL Hrivsyvie72-77 ng/mL Insufficient> 30 ng/mL Sufficient*Lai LOZOYA. N Engl J Med. 2007;357:266-280There is no well-established upper level of normal vitamin Dlevels. Some laboratories use 50 ng/mL as an upper limit ofnormal. However, toxicity is patient-dependent and may occurat any level. Careful correlation with the patient'spresentation is necessary and, if there is concern forvitamin D toxicity, treatment should be consideredirrespective of the serum level.Care must be taken in interpreting Vitamin D results fromdifferent laboratories and methodologies. Published datademonstrated that results from patients undergoinghemodialysis may show a negative bias when tested withvarious automated 25-OH vitamin D assays when compared toLC-MS/MS.When testing samples from patients whose predominant form ofVitamin D is Vitamin D2, such as patients receiving VitaminD2 supplementation, results that are subtherapeutic shouldbe confirmed with another method such as LC-MS/MS. Blood Venous blood specimen / Unknown 04/16/2025 11:12 AM EST 04/16/2025 1:40 PM EST us Alem De Anda MD LAB BLOOD ORDERABLES Final Result Performing Organization Address City/[facility] Co de Phone Number [facility] [address] [place] [phone] * TSH with Reflex to Free T4 (04/16/2025 11:12 AM EST) TSH reflex Free T4 0.96 0.32 - 4.0 uIU/mL [facility] Blood Venous blood specimen / Unknown 04/16/2025 11:12 AM EST 04/16/2025 1:40 PM EST us Alem De Anda MD LAB BLOOD ORDERABLES Final Result Performing Organization Address [facility] de Phone Number [facility] [address] [place] [phone] * Albumin, Random Urine W/Creatinine (04/16/2025 11:12 AM EST) Only the most recent of2 resultswithin the time period is included. Creatinine, Urine 192.28 mg/dL [facility] Microalbumin Urine 54.0 mg/L [facility] Microalbum Creatinine Ratio Ur 28.0 <30 ug/mg cr [facility] Comment:Albumin/Creatinine R atio Reference Ranges: Normal: < 30 ug/mg creatinine Microalbuminuria: 30 - 300 ug/mg creatinineClinical Albuminuria: > 300 ug/mg creatinine Urine (Urine, Random) 04/16/2025 11:12 AM EST 04/16/2025 1:27 PM EST us Alem De Anda MD LAB URINE ORDERABLES Final Result [facility] [address] [place], [place] [phone] * (ABNORMAL) CBC auto differential (04/16/2025 11:12 AM EST) White Blood Count 7.8 4.8 - 10.8 X10*3/uL [facility] Red Blood Count 5.36 4.20 - 5.50 X10*6/uL [facility] Hemoglobin 13.0 12.0 - 16.0 g/dl [facility] Hematocrit 41.8 37.0 - 47.0 % [facility] Mean Corpuscular Volume 78.0(L) 80.0 - 98.0 fL [facility] Mean Corpuscular Hemoglobin 24.3(L) 27.0 - 33.0 pg [facility] Mean Corpuscular HGB Conc 31.1 31.0 - 35.0 g/dl [facility] Red Cell Distribution Width 16.7(H) 11.0 - 16.0 % [facility] Platelet Count 240 160 - 400 X10*3/uL [facility] Mean Platelet Volume 13.7(H) 9.4 - 12.3 fL [facility] Neutrophils Percent Auto 72.5 45 - 73 % [facility] Imm Gran Pct Auto 0.1 0.0 - 0.4 % [facility] Lymphocytes Percent Auto 17.2(L) 20 - 40 % [facility] Monocytes Percent Auto 7.6 2 - 11 % [facility] Eosinophils Percent Auto 2.1 0 - 4 % [facility] Basophils Percent Auto 0.5 0 - 2 % [facility] NRBC Pct Auto 0.0 0.0 - 0.2 /100WBC [facility] Neutrophils Absolute Auto 5.6 2.0 - 8.3 x10*3/uL [facility] Imm Gran Abs Auto 0.01 0.00 - 0.03 X10*3/uL [facility] Lymphocytes Absolute Auto 1.3 1.2 - 4.9 X10*3/uL [facility] Monocytes Absolute Auto 0.6 0.1 - 1.2 X10*3/uL [facility] Eosinophils Absolute Auto 0.2 0.0 - 0.4 X10*3/uL [facility] Basophils Absolute Auto 0.0 0.0 - 0.2 X10*3/uL [facility] NRBC Abs Auto 0.000 0.0 - 0.012 X10*3/uL [facility] Blood Venous blood specimen / Unknown 04/16/2025 11:12 AM EST 04/16/2025 1:40 PM EST us Alem De Anda MD LAB BLOOD ORDERABLES Edited Result - Final [facility] [address] [place] [phone] * (ABNORMAL) Lipid Panel, Standard (04/16/2025 11:12 AM EST) Only the most recent of2 resultswithin the time period is included. Triglycerides 78 <150 mg/dL [facility] Comment:Desirable Triglyceri de: less than 150 mg/dLBorderline High Triglyceride 150-199 mg/dLHigh Triglyceride: 200-499 mg/dLVery High Triglyceride: greater than or equal to 5OO mg/dL Cholesterol 152 <200 mg/dL [facility] Comment:Desirable Cholestero l: less than 200 mg/dLBorderline High Cholesterol: 200-239 mg/dLHigh Cholesterol: greater than 239 mg/dL LDL Cholesterol Calculated 105(H) <100 mg/dL [facility] Comment:Desirable LDL: less than 100 mg/dLNear Optimal/Above Optimal LDL: 110- 129 mg/dLBorderline High LDL: 130-159 mg/dLHigh LDL: 160-189 mg/dLVery High LDL: greater than or equal to 190 mg/dL HDL Cholesterol 32(L) >40 mg/dL [facility] Comment:Desirable HDL: great er than 40 mg/dL Note: This HDL assay may give artificially low results in patients with liver disease. Blood Venous blood specimen / Unknown 04/16/2025 11:12 AM EST 04/16/2025 1:40 PM EST Alem De Anda MD LAB BLOOD ORDERABLES Final Result [facility] [address] [place] [phone] * (ABNORMAL) Comprehensive Metabolic Panel (04/16/2025 11:12 AM EST) Only the most recent of2 resultswithin the time period is included. Sodium 140 135 - 145 mmol/L [facility] Potassium 4.3 3.3 - 5.1 mmol/L [facility] Chloride 110(H) 96 - 108 mmol/L [facility] Carbon Dioxide 25 22 - 29 mmol/L [facility] Anion Gap 9(L) 12 - 20 [facility] Urea Nitrogen (BUN) 16 9 - 16 mg/dL [facility] Creatinine, Serum 0.66 0.5 - 1.4 mg/dL [facility] Estimated Glomerular Filt Rate >60 [facility] Comment:Chronic Kidney Disea se: Estimated GFR < 60 mL/min/1.84b3Tucxwi Kidney Disease: Estimated GFR < 15 mL/min/1.73m2 Glucose 80 60 - 115 mg/dL [facility] Calcium 9.4 8.4 - 10.2 mg/dL [facility] Bilirubin, Total 0.4 0.0 - 1.0 mg/dL [facility] Aspartate Amino Transferase 20 5 - 31 U/L [facility] Alanine Aminotransferase 14 0 - 31 U/L [facility] Total Protein 8.1(H) 6.5 - 8.0 g/dL [facility] Albumin Level 4.4 3.5 - 5.0 g/dL [facility] Alkaline Phosphatase 43 39 - 117 U/L [facility] Blood Venous blood specimen / Unknown 04/16/2025 11:12 AM EST 04/16/2025 1:40 PM EST Alem De Anda MD LAB BLOOD ORDERABLES Final Result [facility] [address] [place] [phone] * (ABNORMAL) POCT Hgb A1c (04/02/2025 9:23 AM EST) Only the most recent of2 resultswithin the time period is included. Hemoglobin A1C 6.2(A) 4.0 - 5.7 % QC Media Lot # [id number] Lot# Expiration Date [id number] Blood 04/02/2025 9:23 AM EST Alem De Anda MD POINT OF CARE TEST EN TER/EDIT ORDERABLES Final Result * POCT Glucose (04/02/2025 9:23 AM EST) Glucose Blood, POC 125 60 - 200 mg/dL [employer] Lot # [id number] Lot# Expiration Date 7,726 Blood Capillary blood specimen / Unknown 04/02/2025 9:23 AM EST Alem De Anda MD POINT OF CARE TEST EN TER/EDIT ORDERABLES Final Result * HPV mRNA E6/E7 w/Reflex to HPV Genotypes 16, 18/45 (03/20/2024 12:00 AM EST) Viktor Provider LAB CYTOLOGY ORDERABLES F inal Result [facility] [address] [place] [phone] * Pap Smear (03/20/2024 12:00 AM EST) Swab 03/20/2024 03/21/2024 9:1 0 AM EST Narrative [facility] - 03/23/2024 1:46 PM EST ----- ------- Name: Tessa Parnell Age/Sex: 39/F : 1985 Unit#: [id number] Attend Dr: Julissa De Anda Re03/20/24 Status: [facility] REF Location: [facility] Disch: ----- ------- SPEC : [id number] RECD: 03/21/24 STATUS: JEFF SILVER NUM: [id number] FAISAL: 03/20/24-[address]: Alem Rubalcava MD ENTERED: 03/21/24 SP TYPE: Pap Smr OT DR: ORDERED: Pap Smear Interpretation Satisfactory for evaluation. Negative for intraepithelial lesion or malignancy. No endocervical cells seen. Scant cellularity. HPV High Risk: Negative HPV Genotyping 16: Negative HPV Genotyping 18: Negative Clinical Information LMP: 02/17/2024 Previous PAP test: Unknown date, WNL Material Received ThinPrep-Vaginal/Cervical ----- ------- Signed (signature on file) Alessio DAVID Agustin ([facility]) 03/23/24 1346 ----- ------- END OF REPORT us Alem De Anda MD LAB CYTOLOGY ORDERABL ES Final Result [facility] [address] [place] [phone] * BI Mammogram Screening Tomosynthesis Bilateral (09/13/2023 2:00 PM EDT) Anatomical Region Laterality Modality Breast Bilateral Mammography 09/13/2023 2:00 PM EDT Narrative 10/14/2023 2:42 PM EDT [address] [place] [address] Mammography Report Signed Patient: Tessa Parnell MR#: [id number] : 1985 Acct:[id number] Age/Sex: 38 / F ADM Date: 09/13/23 Loc: [facility] Attending Dr: Alem De Anda MD Ordering Physician: Alem Rubalcava MD Results: 1Negative Date of Service: 09/13/23 Follow Up: 1 Year From Orig inal Mammogram Procedure(s): MM tomosynthesis screening BI Accession Number(s): [id number] cc: Alem Rubalcava MD EXAMINATION: MM SCREENING [...] in OV> 10/14/23 1438 DD/ 1400 TD/TT: Watch Repair Technician: Procedure Note Donotuseinterpreter, Image - 10/14/[address] [facility] [address] [place] [address] Mammography Report Signed Patient: Tessa Parnell#: [id number] : 1985Acct:[id number] Age/Sex: 38 / FADM Date: 09/13/23 Loc: [facility] Attending Dr: Alem De Anda MD Ordering Physician: Alem Rubalcava MDResults: 1Negative Date of Service: 09/13/23Follow Up: 1 Year From Orig inal Mammogram Procedure(s): MM tomosynthesis screening BI Accession Number(s): [id number] cc: Alem Rubalcava MD EXAMINATION: MM SCREENING [...] in OV> 10/14/23 1438 DD/ 1400 TD/TT: Watch Repair Technician: us Alem De Anda MD IMG BI PROCEDURES Fin al Result * Hepatitis C Antibody with Reflex to HCV, RNA, Quantitative, Real-Time PCR (03/19/2023 8:48 AM EST) Hepatitis C Antibody Nonreactive Nonreactive [facility] Comment:Antibodies to HCV no t detected; does not exclude early acuteHCV infection. Blood Venous blood specimen / Unknown 03/19/2023 8:48 AM EST 03/19/2023 11:27 AM EST Alem De Anda MD LAB BLOOD ORDERABLES Final Result [facility] [address] [place] [phone] * HIV-1/2 Antigen and Antibodies, Fourth Generation, with Reflexes (03/19/2023 8:48 AM EST) HIV AB/AG Nonreactive Nonreactive [facility] Comment:HIV-1 p24 Ag and/or HIV-1/HIV-2 Ab not detected.A test result that is nonreactive does not exclude thepossibility of exposure to or infection with HIV-1 and/orHIV-2. Nonreactive results in this assay for individualswith prior exposure to HIV-1 and/or HIV-2 may be due toantigen and antibody levels that are below the limit ofdetection of this assay.The [employer] HIV Ag/Ab Combo assay result andsupplemental assay results should be interpreted inconjunction with the patient's clinical presentation,history and other laboratory results. If the results areinconsistent with clinical evidence, additional testing issuggested to confirm the result. Blood Venous blood specimen / Unknown 03/19/2023 8:48 AM EST 03/19/2023 11:27 AM EST us Alem De Anda MD LAB BLOOD ORDERABLES Final Result [facility] [address] [place] [address] [phone] from Last 3 Months or Most Recently Relevant to Health Maintenance Additional Health Concerns Active Problems Noted Date Diagnosed Date Help patients manage their type 2 diabetes 03/20 Weekly blood pressure task 03/20/2025 Help patients manage their type 2 diabetes 03/20 Patient has chronic kidney disease 03/20/2025 Weekly blood pressure task 03/20/2025 Patient has chronic kidney disease 03/20/2025 Weekly blood pressure task 04/02/2025 Weekly blood pressure task 04/02/2025 Patient has chronic kidney disease 04/02/2025 Patient has chronic kidney disease 04/02/2025 Weekly blood pressure task 04/02/2025 Weekly blood pressure task 04/02/2025 Patient has chronic kidney disease 04/02/2025 Patient has chronic kidney disease 04/02/2025 Weekly blood pressure task 04/02/2025 Weekly blood pressure task 04/02/2025 Patient has chronic kidney disease 04/02/2025 Patient has chronic kidney disease 04/02/2025 Weekly blood pressure task 04/02/2025 Weekly blood pressure task 04/02/2025 Patient has chronic kidney disease 04/02/2025 Patient has chronic kidney disease 04/02/2025 Weekly blood pressure task 04/02/2025 Weekly blood pressure task 04/02/2025 Patient has chronic kidney disease 04/02/2025 Patient has chronic kidney disease 04/02/[address] [place] [address] [place] [address] C3 Care Teams Change Management Administrator Relationship Specialty Start Date End Date Alem Rubalcava MD [address] [place] [address] PCP - General Family Medicine 03/08/18
--- OUTSIDE RECORDS SUMMARY | 2025-04-24 09:03 | XMS_ITS | Encounter Summary ---
Author Organization [employer] Address [address] [place] [address] [address] [place] [address] Care Team Providers Care Diagnostics Tech Name Role Phone Alem Rubalcava MD Primary Care Provide r Reason for Visit * Reason Onset Date Comments Med Refill 04/16/2023 Encounter Details Date Type Department Care Team ([facility] Contact Info) Description 04/16/2023 Refill [facility] MEDICINE [address] [place] [address] Alem Rubalcava MD [address] [place] [address] Essential hypertension Social History Tobacco Use Types [...] Description 05/24/2025 1:00 PM EST Office Visit [facility] MEDICINE [address] [place] [address] Alem Rubalcava MD [address] [place] [address] 06/05/2025 11:00 AM EST Nutrition [facility] DIABETES/NUTRITION [address] [place] [address] [place] [address] documented as of this encounter Visit Diagnoses Diagnosis Essential hypertension Unspecified essential hypertension documented in this encounter Care Teams Diagnostics Tech Relationship Specialty Start Date End Date Alem Rubalcava MD [address] [place] [address] [id number] PCP - General Family Medicine 03/08/18 documented as of this encounter
== END 2025-04-24 09:38 | disposition home or self-care (01) ==
LOC: HO.HPODS 08:46
PROVIDERS: PCP Internal Medicine; Visit Provider Student in an Organized Health Care Education/Training Program
DX: B35.1 Tinea unguium (principal); E11.43 Type 2 diabetes mellitus with diabetic autonomic (poly)neuropathy
CPT/HCPCS: 99204

== ENCOUNTER → 2025-04-24 08:45 | Outpatient (BNVA) | payer MEDICAID, SELFPAY | PROVIDERS: PCP Internal Medicine; Visit Provider Student in an Organized Health Care Education/Training Program | DX: B35.1 Tinea unguium (principal); E11.43 Type 2 diabetes mellitus with diabetic autonomic (poly)neuropathy | CPT/HCPCS: 99202 ==